=== PATIENT | female | born 1930 | race Caucasian/White ===

== ENCOUNTER 2018-07-24 20:17 | Inpatient (IN) ==
--- NOTE | 2018-07-24 21:07 | ED ---
HPI General Chief complaint: Nausea/Vomiting/Diarrhea Stated complaint: poss GI Bleed Time Seen by Provider: 07/24/18 20:48 Source: patient Mode of arrival: ambulatory Limitations: no limitations History of Present Illness HPI Narrative: Patient presents with history of nausea vomiting and diarrhea since Saturday. Patient started with nausea and vomiting and hematemesis with black vomitus. Over the next 2 days patient had 2 to 3 black stools. Patient states she stayed in the bathtub to clean up the black stools and vomitus and was unable to get out. Neighbors had patient checked on and she was found in the bathtub. Patient said she is tried to drink fluid but unable to maintain. The diarrhea and nausea and vomiting have resolved at the present time. Related Data Home Medications Medication Instructions Recorded Confirmed Unable to Obtain Home Meds 07/24/18 07/24/18 Allergies Allergy/AdvReac Type Severity Reaction Status Date / Time No Known Allergies Allergy Verified 07/24/18 21:20 Review of Systems ROS: all other systems reviewed are negative [facility] Social History Social History Smoking Status: Former smoker Tobacco Type: Cigarettes How Often Do You Have a Drink Containing Alcohol: Never Recent Travel in [facility] within the Last 8 Weeks: No Recent Out of Country Travel within the Last 8 Weeks: No Immunization History Tetanus Immunization: Unsure Exam Narrative Exam Narrative: GENERAL: Alert and oriented SKIN: Focused skin assessment warm/dry. Patient has extensive candidal infection under both breasts anteriorly. Patient also has decubiti to buttocks. She has 4 areas that have 2-3 grade 3 cm diameter. And additionally patient has grade 1 to a large area of the lower buttocks area. HEAD: Atraumatic. Normocephalic. EYES: Pupils equal and round. No scleral icterus. No injection or drainage. ENT: No nasal bleeding or discharge. Mucous membranes pink and dry with chapped lips. NECK: Trachea midline. No JVD. CARDIOVASCULAR: Regular rate and rhythm. No murmur appreciated. RESPIRATORY: No accessory muscle use. Clear to auscultation. Breath sounds equal bilaterally. Rectal: Patient has brown stoolHemoccult negative GASTROINTESTINAL: Abdomen soft, non-tender, nondistended. Hepatic and splenic margins not palpable. MUSCULOSKELETAL: No obvious deformities. No clubbing. No cyanosis. No edema. NEUROLOGICAL: Awake and alert. No obvious cranial nerve deficits. Motor grossly within normal limits. Normal speech. PSYCHIATRIC: Appropriate mood and affect; insight and judgment normal. Course Reevaluation(s) Reevaluation #1: Patient came in with dehydration gastroenteritis with questionable of GI bleed. Patient was found in bathtub where she had laid for 2 days. Patient has no cardiac symptomatology. However EKG showed ST segment elevation in precordial leads. Troponin showed significant elevation of indication of [place]. Patient being transferred to [facility] for cardiac cath and started on heparin. Time: 03:58 Initial Documented Vital Signs Pulse Rate 74 07/24/18 23:11 Pulse Oximetry 94 L 07/24/18 23:11 Last Documented Vital Signs Pulse Rate 80 07/25/18 03:05 Respiratory Rate 16 07/25/18 01:52 Blood Pressure 163/81 H 07/25/18 03:05 Pulse Oximetry 95 07/25/18 03:05 Medical Decision Making MDM Narrative Medical decision making narrative: Patient comes in with episode of gastroenteritis and questionable GI bleed. There was no evidence of GI bleed however patient was dehydrated unable to get out of bathtub for 2 days. Patient comes in with decubiti and on workup was found to have abnormal EKG with ST segment elevation V1 V2. Troponin value afterwards showed significant elevation and patient is started on heparin and transferred to [facility] for further evaluation. Patient has no symptomatology of cardiac symptomatology so the cardiac event should have presumed to occurred in the last 3 days Medical Screen Exam Complete: Yes Emergency Medical Condition: Yes Lab Data Lab results reviewed: Yes I reviewed the patient's lab results. Result diagrams: 07/24/18 22:05 07/24/18 22:32 Lab Results 07/24/18 07/24/18 07/24/18 Range/Units 22:05 22:32 22:32 CBC w Diff Slide review pending WBC 18.2 H (4.0-11.0) th/mm3 RBC 4.94 (4.00-5.30) mil/mm3 Hgb 15.3 (11.6-15.3) gm/dL Hct 46.2 H (35.0-46.0) % MCV 93.6 (80.0-100.0) fL MCH 31.0 (27.0-34.0) pg MCHC 33.1 (32.0-36.0) % RDW 14.5 (11.6-17.2) % Plt Count 121 L (150-450) th/mm3 MPV 10.0 (7.0-11.0) fL Neut % (Auto) 83.2 H (16.0-70.0) % Lymph % (Auto) 6.2 L (9.0-44.0) % [place] % (Auto) 9.0 H (0.0-8.0) % Eos % (Auto) 0.0 (0.0-4.0) % Baso % (Auto) 1.6 (0.0-2.0) % Neut # (Auto) 15.2 H (1.8-7.7) th/mm3 Lymph # (Auto) 1.1 (1.0-4.8) th/mm3 [place] # (Auto) 1.6 H (0.0-0.9) th/mm3 Eos # (Auto) 0.0 (0.0-0.4) th/mm3 Baso # (Auto) 0.3 H (0.0-0.2) th/mm3 WBC Differential . Diff Scan Auto diff confirmed Differential Comment . Platelet Estimate Low L (Normal) Platelet Morphology Enlarged H (Normal) Sodium 152 H (136-145) meq/L Potassium 4.6 (3.5-5.1) meq/L Chloride 117 H (98-107) meq/L Carbon Dioxide 25.9 (21.0-32.0) meq/L Anion Gap 9 (5-15) meq/L BUN 59 H (7-18) mg/dL Creatinine 1.30 H (0.50-1.00) mg/dL Estimated GFR 39 L (>89) mL/min Random Glucose 117 H (74-106) mg/dL Calcium 8.0 L (8.5-10.1) mg/dL Total Bilirubin 1.3 H (0.2-1.0) mg/dL AST 229 H (15-37) U/L ALT 70 H (10-53) U/L Alkaline Phosphatase 51 (45-117) U/L Total Creatine Kinase (26-192) U/L CK-MB (CK-2) (0.5-3.6) ng/mL CK-MB (CK-2) % (0.0-4.0) % Troponin I 2.91 H* (0.02-0.05) ng/mL B-Natriuretic Peptide (0-100) pg/mL Total Protein 6.3 L (6.4-8.2) g/dL Albumin 2.8 L (3.4-5.0) g/dL Urine Color (Yellw/Straw) Urine Clarity (Clear) Urine pH (5.0-8.5) Ur Specific [place] (1.002-1.035) Urine Protein (Neg-Trace) mg/dL Urine Glucose (UA) (Negative) mg/dL Urine Ketones (Negative) mg/dL Urine Occult Blood (Negative) Urine Nitrate (Negative) Urine Bilirubin (Negative) Urine Urobilinogen (Less than 2) mg/dL Ur Leukocyte Esterase (Negative) Urine RBC (0-3) /hpf Urine WBC (0-5) /hpf Ur Squamous Epith Cells (0-5) /hpf Urine Bacteria (None) /hpf Micro UA Comment Ur Microscopic Review Urine Culture Comments 07/24/18 07/24/18 07/25/18 Range/Units 23:31 23:33 01:36 CBC w Diff WBC (4.0-11.0) th/mm3 RBC (4.00-5.30) mil/mm3 Hgb (11.6-15.3) gm/dL Hct (35.0-46.0) % MCV (80.0-100.0) fL MCH (27.0-34.0) pg MCHC (32.0-36.0) % RDW (11.6-17.2) % Plt Count (150-450) th/mm3 MPV (7.0-11.0) fL Neut % (Auto) (16.0-70.0) % Lymph % (Auto) (9.0-44.0) % [place] % (Auto) (0.0-8.0) % Eos % (Auto) (0.0-4.0) % Baso % (Auto) (0.0-2.0) % Neut # (Auto) (1.8-7.7) th/mm3 Lymph # (Auto) (1.0-4.8) th/mm3 [place] # (Auto) (0.0-0.9) th/mm3 Eos # (Auto) (0.0-0.4) th/mm3 Baso # (Auto) (0.0-0.2) th/mm3 WBC Differential Diff Scan Differential Comment Platelet Estimate (Normal) Platelet Morphology (Normal) Sodium (136-145) meq/L Potassium (3.5-5.1) meq/L Chloride (98-107) meq/L Carbon Dioxide (21.0-32.0) meq/L Anion Gap (5-15) meq/L BUN (7-18) mg/dL Creatinine (0.50-1.00) mg/dL Estimated GFR (>89) mL/min Random Glucose (74-106) mg/dL Calcium (8.5-10.1) mg/dL Total Bilirubin (0.2-1.0) mg/dL AST (15-37) U/L ALT (10-53) U/L Alkaline Phosphatase (45-117) U/L Total Creatine Kinase 1843 H (26-192) U/L CK-MB (CK-2) 23.8 H (0.5-3.6) ng/mL CK-MB (CK-2) % 1.3 (0.0-4.0) % Troponin I (0.02-0.05) ng/mL B-Natriuretic Peptide 117 H (0-100) pg/mL Total Protein (6.4-8.2) g/dL Albumin (3.4-5.0) g/dL Urine Color Yellow (Yellw/Straw) Urine Clarity Clear (Clear) Urine pH 5.5 (5.0-8.5) Ur Specific [place] Greater/equal 1.030 (1.002-1.035) Urine Protein 30 H (Neg-Trace) mg/dL Urine Glucose (UA) Negative (Negative) mg/dL Urine Ketones Trace H (Negative) mg/dL Urine Occult Blood Large H (Negative) Urine Nitrate Negative (Negative) Urine Bilirubin Negative (Negative) Urine Urobilinogen 0.2 (Less than 2) mg/dL Ur Leukocyte Esterase Negative (Negative) Urine RBC 0-3 (0-3) /hpf Urine WBC 6-8 H (0-5) /hpf Ur Squamous Epith Cells 0-5 (0-5) /hpf Urine Bacteria Many H (None) /hpf Micro UA Comment Culture indicated Ur Microscopic Review Microscopic reviewed Urine Culture Comments Culture indicated Imaging Data Radiologist's impression: Chest X-Ray 07/24/18 21:39 CONCLUSION: Minimal prominence of interstitium. This could represent some pulmonary venous hypertension or underlying chronic interstitial change. Chest X-Ray 07/24/18 23:33 CONCLUSION: Minimal basilar atelectasis or scarring. Tortuous aorta. Discharge Plan Discharge Disposition Patient Disposition: 02 Transfer To [facility] [place] [place] Physicians Team ED Provider: Ovidio Leyva Primary Care Provider: UNKNOWN, Rxs /Orders / Referrals /Forms Prescriptions: No Action Unable to Obtain Home Meds RF: 0 Discharge Interventions Interventions: Vital Signs Last Done: 07/25/18 03:05 Status ED Status: With Doctor
[2018-07-24] MEDS ORDERED: Sod Chloride 0.9% Inj 1,000 ML IV.SIG ONE (21:39)
[2018-07-24 22:22] LABS: Baso # (Auto) 0.3 th/mm3 (0.0-0.2); Baso % (Auto) 1.6 % (0.0-2.0); Hematocrit 46.2 % (35.0-46.0); Hemoglobin 15.3 gm/dL (11.6-15.3); Lymph # (Auto) 1.1 th/mm3 (1.0-4.8); Lymph % (Auto) 6.2 % (9.0-44.0); Mean Corpuscular HGB Conc 33.1 % (32.0-36.0); Mean Corpuscular Volume 93.6 fL (80.0-100.0); Mono # (Auto) 1.6 th/mm3 (0.0-0.9); Neut # (Auto) 15.2 th/mm3 (1.8-7.7); Neut % (Auto) 83.2 % (16.0-70.0); Platelet Count 121 th/mm3 (150-450); Red Blood Count 4.94 mil/mm3 (4.00-5.30); Red Cell Distribution Width 14.5 % (11.6-17.2); White Blood Count 18.2 th/mm3 (4.0-11.0)
--- NOTE | 2018-07-24 22:39 | XR ---
EXAM DATE: 07/24/2018 9:39 PM EDT AGE/SEX: 87 years / Female INDICATIONS: Shortness of breath. CLINICAL DATA: This is the patient's initial encounter. Patient reports that signs and symptoms have been present for 3 days and indicates a pain score of 0/10. MEDICAL/SURGICAL HISTORY: None. None. COMPARISON: No prior exams available for comparison. FINDINGS: The patient is rotated towards the right. The heart size appears within normal limits. There is some mild prominence of interstitium. An alveolar consolidation is not seen. A significant effusion is not seen. CONCLUSION: Minimal prominence of interstitium. This could represent some pulmonary venous hypertension or underl maddison chronic interstitial change. Electronically signed by: Richard Theodore MD 07/24/2018 10:37 PM EDT
[2018-07-24 22:48] LABS: Chloride 117 meq/L (98-107); Potassium 4.6 meq/L (3.5-5.1); Sodium 152 meq/L (136-145)
[2018-07-24 22:51] LABS: Albumin 2.8 g/dL (3.4-5.0); Anion Gap 9 meq/L (5-15); Blood Urea Nitrogen 59 mg/dL (7-18); Carbon Dioxide 25.9 meq/L (21.0-32.0); Glucose,Random 117 mg/dL (74-106)
[2018-07-24 22:54] LABS: Alanine Aminotransferase 70 U/L (10-53); Aspartate Aminotransferase 229 U/L (15-37); Glomerular Filtration Rate 39 mL/min (>89)
[2018-07-24 22:56] LABS: Total Protein 6.3 g/dL (6.4-8.2)
[2018-07-24 22:57] LABS: Alkaline Phosphatase 51 U/L (45-117)
[2018-07-24 23:58] LABS: CKMB Percent 1.3 % (0.0-4.0); Creatine Kinase MB 23.8 ng/mL (0.5-3.6)
--- NOTE | 2018-07-25 00:07 | XR ---
EXAM DATE: 07/24/2018 11:33 PM EDT AGE/SEX: 87 years / Female INDICATIONS: Shortness of breath. CLINICAL DATA: This is the patient's subsequent encounter. Patient reports that signs and symptoms h ave been present for 1 day and indicates a pain score of 0/10. MEDICAL/SURGICAL HISTORY: None. None. COMPARISON: HPO, CHEST 1V SINGLE AP, 07/24/2018. . FINDINGS: A single AP view of the chest demonstrates the lungs to be symmetrically aerated without evidence of mass, infiltrate or effusion. Minimal basilar atelectasis or scarring. The cardiomediastinal contour s are unremarkable. Osseous structures are intact. CONCLUSION: Minimal basilar atelectasis or scarring. Tortuous aorta. Electronically signed by: Jose Wild MD 07/25/2018 12:06 AM EDT
[2018-07-25 01:58] LABS: Bilirubin,Urine Negative (Negative); Clarity,Urine Clear (Clear); Color,Urine Yellow (Yellw/Straw); Glucose,Urine (UA) Negative (Negative); Leukocyte Esterase,Urine Negative (Negative); Nitrite,Urine Negative (Negative); PH,Urine 5.5 (5.0-8.5); Specific Gravity,Urine Greater/Equal 1.030 (1.002-1.035); Urobilinogen,Urine 0.2 mg/dL (Less than 2)
[2018-07-25 02:03] LABS: Bacteria,Urine Many /hpf; RBC,Urine 0-3 /hpf (0-3); Squamous Epithelial Cell,Urine 0-5 /hpf (0-5)
[2018-07-25] MEDS ORDERED: Sod Chloride 0.9% Inj 1,000 ML IV.SIG SCH (03:30)
[2018-07-25] MEDS ORDERED: Heparin 10,000 UNITS/10 ML Vial (for IV use) IV.PUSH STA (03:50)
[2018-07-25] MEDS ORDERED: Acetaminophen 325 MG Tablet PO PRN (03:52)
[2018-07-25] MEDS ORDERED: Bisacodyl 10 MG Supp RECTAL PRN (03:52)
[2018-07-25] MEDS ORDERED: Sod Chloride 0.9% Inj 1,000 ML IV.CONT SCH (04:00)
[2018-07-25 04:27] LABS: Troponin I 2.16 ng/mL (0.02-0.05)
[2018-07-25 04:40] LABS: CKMB Percent 1.4 % (0.0-4.0); Creatine Kinase MB 18.7 ng/mL (0.5-3.6)
[2018-07-25 06:55] LABS: INR 1.1 Ratio; Prothrombin Time 11.6 sec (9.8-11.6)
[2018-07-25 06:58] LABS: Hematocrit 38.2 % (35.0-46.0); Mean Corpuscular HGB Conc 34.4 % (32.0-36.0); Mean Corpuscular Hemoglobin 32.3 pg (27.0-34.0); Mean Corpuscular Volume 93.7 fL (80.0-100.0); Mean Platelet Volume 9.8 fL (7.0-11.0); Platelet Count 103 th/mm3 (150-450); Red Blood Count 4.07 mil/mm3 (4.00-5.30); Red Cell Distribution Width 13.8 % (11.6-17.2); White Blood Count 14.1 th/mm3 (4.0-11.0)
[2018-07-25 07:01] LABS: Hemoglobin 13.1 gm/dL (11.6-15.3)
[2018-07-25 07:07] LABS: Lactate Dehydrogenase 671 U/L (84-246)
[2018-07-25] MEDS: Heparin Drip 25,000 UNIT/250 ML BAG IV.CONT PRN (07:20)
[2018-07-25 10:34] LABS: Baso % (Auto) 0.1 % (0.0-2.0); Hematocrit 43.4 % (35.0-46.0); Hemoglobin 14.1 gm/dL (11.6-15.3); Lymph # (Auto) 1.6 th/mm3 (1.0-4.8); Lymph % (Auto) 11.8 % (9.0-44.0); Mean Corpuscular HGB Conc 32.5 % (32.0-36.0); Mean Corpuscular Hemoglobin 31.6 pg (27.0-34.0); Mean Corpuscular Volume 97.1 fL (80.0-100.0); Mean Platelet Volume 11.2 fL (7.0-11.0); Mono # (Auto) 1.3 th/mm3 (0.0-0.9); Mono % (Auto) 9.7 % (0.0-8.0); Neut # (Auto) 10.7 th/mm3 (1.8-7.7); Neut % (Auto) 78.4 % (16.0-70.0); Platelet Count 107 th/mm3 (150-450); Red Blood Count 4.47 mil/mm3 (4.00-5.30); Red Cell Distribution Width 14.2 % (11.6-17.2); White Blood Count 13.7 th/mm3 (4.0-11.0)
[2018-07-25] MEDS: Senna/Docusate Sodium 8.6/50 MG Tablet PO SCH ×2 (10:38→21:04)
--- NOTE | 2018-07-25 10:50 | P.HPIM ---
History of Present Illness Service: [facility] Primary Care Physician: UNKNOWN History of Present Illness: 87 Y/O female who presented to the emergency room for nausea and vomiting. She reported black emesis to the ED physician but reports to me that she vomited a sandwich made with roast beef. There is also reports of 2-3 black stools. Over the past two days prior to presentation, she has been unable to keep anything down, even liquids. She went to the bath tub to clean herself but could not get out. Neighbors found her in the tub. The patient is still quiet somnolent and is not providing much history. Workup in the emergency room revealed an elevated troponin and rhabdomyolysis. She currently denies any cardiovascular complaints. Nausea and vomiting resolved. - Diagnosis (1) Elevated troponin (2) Gastroenteritis (3) Rhabdomyolysis Inpatient Certification: I certify that the inpatient services were ordered in accordance with Medicare regulations governing the order. This includes certification that hospital inpatient services are reasonable and necessary and in the case of services not specified as inpatient-only under 42 CFR 419.22(n), that they are appropriately provided as inpatient services in accordance to with the 2-midnight benchmark under 43 CFR 412.3(e) Estimated Total Length of Stay (Days): 2 Plans for Post Hospital Care: Not yet determined Review of Systems unobtainable due to mental status PMFSH - History History Provided By: Patient - Medical / Surgical Hx Neg / Unobtainable Medical Problems Denied: Unable to Obtain - Tobacco History Smoking Status: Former smoker Tobacco Type: Cigarettes - Alcohol History How Often Do You Have a Drink Containing Alcohol: Never - Travel History Recent Travel in the [place] Within the Last 8 Weeks: No Recent Travel Out of the Country Within the Last 8 Weeks: No - Immunization History Tetanus Immunization: Unsure Medications and Allergies Active Medications: Active Medications Acetaminophen (Tylenol) 650 mg PO Q4H PRN PRN Reason: Temp > 100.4 Al Hydroxide/Mg Hydroxide (Milk Of Magnesia Liq) 30 ml PO Q12H PRN PRN Reason: Mild Constipation Bisacodyl (Dulcolax Supp) 10 mg RECTAL DAILY PRN PRN Reason: SEVERE CONSITIPATION Sodium Chloride (Ns Inj) 1,000 mls @ 0 mls/hr IV.SIG BOLUS NIRANJAN Last Infusion: 07/25/18 05:35 Dose: Infused Sodium Chloride (Ns Inj) 1,000 mls @ 100 mls/hr IV.CONT .Q10H NIRANJAN Last Admin: 07/25/18 07:22 Dose: 100 mls/hr Heparin Sodium/Dextrose (Heparin/D5w 25,000 U/250 Ml) 25,000 unit in 250 mls @ 0 mls/hr IV.CONT TITRATE PRN; Protocol PRN Reason: Per Protocol Last Admin: 07/25/18 07:20 Dose: 1,000 units/hr, 10 mls/hr Lactulose (Lactulose Liq) 30 ml PO DAILY PRN PRN Reason: SEVERE CONSITIPATION Ondansetron HCl (Zofran Inj) 4 mg IV.PUSH Q6H PRN PRN Reason: NAUSEA OR VOMITING Senna/Docusate Sodium (Gail-Colace) 1 tab PO BID [facility] Last Admin: 07/25/18 10:38 Dose: Not Given Sennosides (Senokot) 17.2 mg PO Q12H PRN PRN Reason: Moderate Constipation Sodium Chloride (Ns Flush) 2 ml IV.FLUSH PRN PRN PRN Reason: FLUSH AFTER USING IV ACCESS Allergies Allergy/AdvReac Type Severity Reaction Status Date / Time No Known Allergies Allergy Verified 07/24/18 21:20 Home Medications Medication Instructions Recorded Confirmed Type Unable to Obtain Home Meds 07/24/18 07/24/18 History Exam Vital signs: Vital Signs 07/24/18 23:11 07/25/18 01:09 07/25/18 01:52 Temperature Pulse Rate 74 85 82 Respiratory Rate 16 Blood Pressure 158/60 H 151/63 H Pulse Oximetry 94 L 95 95 07/25/18 03:05 07/25/18 05:40 07/25/18 06:06 Temperature 97.6 F Pulse Rate 80 82 71 Respiratory Rate 16 Blood Pressure 163/81 H 159/74 H 151/74 H Pulse Oximetry 95 95 98 07/25/18 07:00 Temperature Pulse Rate 75 Respiratory Rate 18 Blood Pressure 139/66 Pulse Oximetry 96 Intake & Output 07/24/18 07/25/18 07/25/18 18:59 06:59 18:59 Intake Total 1999 Output Total 350 / 350 Balance 1650 / 1650 Weight 90.718 kg Intake: IV 1999 NS Inj 1,000 ML @ Wide Open IV. 1999 SIG BOLUS [facility] Rx#:[id number] Output: Urine Amount (Catheter) 350 / 350 Female External 350 / 350 Narrative: GENERAL: Elderly female, Somnolent. SKIN: Warm and dry. HEAD: Atraumatic. Normocephalic. EYES: Pupils equal and round. No scleral icterus. No injection or drainage. ENT: No nasal bleeding or discharge. Mucous membranes pink and moist. NECK: Trachea midline. No JVD. CARDIOVASCULAR: Normal rate and regular rhythm. RESPIRATORY: No accessory muscle use. Clear to auscultation. Breath sounds equal bilaterally. GASTROINTESTINAL: Abdomen soft, non-tender, nondistended. Hepatic and splenic margins not palpable. MUSCULOSKELETAL: Extremities without clubbing, cyanosis, or edema. No obvious deformities. NEUROLOGICAL: Somnolent but able to move all extremities spontaneously and briefly wake up to answer some questions. Results - Labs CBC & Chem 7: 07/25/18 09:44 07/25/18 09:44 Labs: Short CBC 07/24/18 07/25/18 07/25/18 Range/Units 22:05 06:40 09:44 WBC 18.2 H 14.1 H 13.7 H (4.0-11.0) th/mm3 Hgb 15.3 13.1 D 14.1 (11.6-15.3) gm/dL Hct 46.2 H 38.2 43.4 (35.0-46.0) % Plt Count 121 L 103 L 107 L (150-450) th/mm3 BMP 07/24/18 22:32 Sodium 152 H Potassium 4.6 Chloride 117 H Carbon Dioxide 25.9 BUN 59 H Creatinine 1.30 H Calcium 8.0 L Cardiac Enzymes 07/24/18 07/24/18 07/25/18 Range/Units 22:32 23:31 03:30 Total Creatine Kinase 1843 H 1298 H (26-192) U/L CK-MB (CK-2) 23.8 H 18.7 H (0.5-3.6) ng/mL Troponin I 2.91 H* 2.16 H* D (0.02-0.05) ng/mL Liver Function 07/24/18 Range/Units 22:32 Total Bilirubin 1.3 H (0.2-1.0) mg/dL AST 229 H (15-37) U/L ALT 70 H (10-53) U/L Alkaline Phosphatase 51 (45-117) U/L Albumin 2.8 L (3.4-5.0) g/dL Urine 07/25/18 Range/Units 01:36 Urine Color Yellow (Yellw/Straw) Urine Clarity Clear (Clear) Urine pH 5.5 (5.0-8.5) Ur Specific [place] Greater/equal 1.030 (1.002-1.035) Urine Protein 30 H (Neg-Trace) mg/dL Urine Glucose (UA) Negative (Negative) mg/dL - Imaging Impressions Chest X-Ray 07/24/18 21:39 CONCLUSION: Minimal prominence of interstitium. This could represent some pulmonary venous hypertension or underlying chronic interstitial change. Chest X-Ray 07/24/18 23:33 CONCLUSION: Minimal basilar atelectasis or scarring. Tortuous aorta. Caprini VTE Risk Assessment Caprini VTE Risk Assessment: Moderate/High Risk (score >= 2) Caprini Risk Assessment Model: Point Value = 1 Point Value = 2 Point Value = 3 Point Value = 5 Age 41-60 Minor surgery BMI > 25 kg/m2 Swollen legs Varicose veins or History of unexplained or recurrent spontaneous Oral contraceptives or hormone replacement Sepsis (< 1 month) Serious lung disease, including pneumonia (< 1 month) Abnormal pulmonary function Acute myocardial infarction Congestive heart failure (< 1 month) History of inflammatory bowel disease Medical patient at bed rest Age 61-74 Arthroscopic surgery Major open surgery (> 45 min) Laparoscopic surgery (> 45 min) Malignancy Confined to bed (> 72 hours) Immobilizing plaster cast Central venous access Age >= 75 History of VTE Family history of VTE Factor V Leiden Prothrombin [id number] Lupus anticoagulant Anticardiolipin antibodies Elevated serum homocysteine Heparin-induced thrombocytopenia Other congenital or acquired thrombophilia Stroke (< 1 month) Elective arthroplasty Hip, pelvis, or leg fracture Acute spinal cord injury (< 1 month) Prophylaxis Regimen: Total Risk Factor Score Risk Level Prophylaxis Regimen 0-1 Low Early ambulation 2 Moderate Order ONE of the following: *Sequential Compression Device (SCD) *Heparin 5000 units SQ BID 3-4 Higher Order ONE of the following medications: *Heparin 5000 units SQ TID *Enoxaparin/Lovenox 40 mg SQ daily (WT < 150 kg, CrCl > 30 mL/min) *Enoxaparin/Lovenox 30 mg SQ daily (WT < 150 kg, CrCl > 10-29 mL/min) *Enoxaparin/Lovenox 30 mg SQ BID (WT < 150 kg, CrCl > 30 mL/min) AND/OR *Sequential Compression Device (SCD) 5 or more Highest Order ONE of the following medications: *Heparin 5000 units SQ TID (Preferred with Epidurals) *Enoxaparin/Lovenox 40 mg SQ daily (WT < 150 kg, CrCl > 30 mL/min) *Enoxaparin/Lovenox 30 mg SQ daily (WT < 150 kg, CrCl > 10-29 mL/min) *Enoxaparin/Lovenox 30 mg SQ BID (WT < 150 kg, CrCl > 30 mL/min) AND *Sequential Compression Device (SCD) Assessment and Plan - Assessment (1) Elevated troponin Code(s): R74.8 - Abnormal levels of other serum enzymes Status: Acute (2) Gastroenteritis Code(s): K52.9 - Noninfective gastroenteritis and colitis, unspecified Status : Acute (3) Rhabdomyolysis Code(s): M62.82 - Rhabdomyolysis Status: Acute - Plan 87 Y/O female with: Rhabdomyolysis secondary to dehydration and prolonged immobilization: - Continue with IV hydration - Follow up labs Elevated troponin: - No cardiovascular complaints. DW Cardiology. Likely due to severe dehydration and rhabdo. Recommends we continue to watch her and keep heparin for 24-48 hrs. - Troponin downtrending. Gastroenteritis with reports of dark emesis and dark stool. - Agree with Cardiology., will ask GI to evaluate in AM - H&H is normal so far but may be hemoconcentrated. Follow H&H KYLEE: Likely secondary to dehydration - Continue IV hydration - Follow up labs in AM Elevated LFT's - Likely secondary to shocked liver and severe dehydration. No history of liver disease - Follow up LFT's in AM.
[2018-07-25 11:15] LABS: Alanine Aminotransferase 68 U/L (10-53); Albumin 2.8 g/dL (3.4-5.0); Anion Gap 12 meq/L (5-15); Aspartate Aminotransferase 201 U/L (15-37); Blood Urea Nitrogen 50 mg/dL (7-18); Calcium 8.3 mg/dL (8.5-10.1); Carbon Dioxide 26.2 meq/L (21.0-32.0); Chloride 116 meq/L (98-107); Glomerular Filtration Rate 56 mL/min (>89); Glucose,Random 87 mg/dL (74-106); Potassium 3.6 meq/L (3.5-5.1); Sodium 154 meq/L (136-145)
[2018-07-25 11:29] LABS: Alkaline Phosphatase 55 U/L (45-117); Creatine Kinase 1240 U/L (26-192); Total Protein 6.1 g/dL (6.4-8.2)
[2018-07-25 11:43] LABS: Troponin I 1.82 ng/mL (0.02-0.05)
[2018-07-25 11:55] LABS: CKMB Percent 1.3 % (0.0-4.0); Creatine Kinase MB 16.4 ng/mL (0.5-3.6)
--- NOTE | 2018-07-25 12:44 | MB ---
cc: Milo Flowers DO DATE: 07/25/2018 REASON FOR CONSULTATION: Elevated troponin. HISTORY OF PRESENT ILLNESS: Suzette Ribera is an 87-year-old female who apparently presented to [facility] due to nausea, vomiting and diarrhea. The patient has lost her sense of smell supposedly and ate rancid roast beef, and because of this she started having nausea, vomiting and diarrhea. Apparently, her emesis and diarrhea were both melanotic. Because of this, she placed herself in the bathtub trying to clean up. She was unable to get out of the bathtub and stayed in the bathtub for a few days. Neighbors had the patient checked on and she was found in the bathtub. She was brought to [facility] and from there transferred to [facility]. In seeing her, she is currently hemodynamically stable. She is relatively lethargic and is able to answer simple questions, but otherwise falls asleep during questioning. Difficult to obtain any history at this time because of this. She states that she has no chest pain or shortness of breath throughout the event or currently. PAST MEDICAL HISTORY: Unable to obtain. PAST SURGICAL HISTORY: Unable to obtain. ALLERGIES: NO KNOWN DRUG ALLERGIES. MEDICATIONS: Unable to obtain. FAMILY HISTORY: Unable to obtain. SOCIAL HISTORY: Unable to obtain. REVIEW OF SYSTEMS: Difficult to obtain, but apparently the patient has no chest pain, shortness of breath or palpitations. She was positive for nausea, vomiting and diarrhea. PHYSICAL EXAMINATION: VITAL SIGNS: Temperature 97.6, heart rate 75, blood pressure 139/66, respirations 18, pulse oximetry 96% on 2 liters. GENERAL: The patient is in no acute distress, mostly lethargic, but arousable to questioning. HEENT: Pupils are equal, round and reactive. Mucous membranes are dry. NECK: Supple. No JVD at 45 degrees. No carotid bruits heard bilaterally. Carotid upstroke is brisk in nature. HEART: Regular rate and rhythm. Positive first and second heart sounds with a 1/6 crescendo decrescendo murmur to the right sternal border. LUNGS: Clear to auscultation bilaterally. No wheezes, rales or rhonchi. ABDOMEN: Soft, nontender, nondistended. No organomegaly noted. EXTREMITIES: Show trace edema bilaterally. NEUROLOGIC: Appears to move all 4 extremities. SKIN: Warm, dry and intact. OSTEOPATHIC: Mild kyphoscoliosis. No lordosis. LABORATORY WORK: Hemoglobin 13.1, hematocrit 38.2, platelets 103. Potassium 3.6, BUN 50, creatinine 0.95. Troponin 2.91 decreasing to 1.82. Electrocardiogram (07/24/2018 at 23:48): Sinus rhythm, nonspecific ST-T wave changes. IMPRESSION: 1. Elevated troponin, possible type 2. 2. Dehydration due to diarrhea and emesis. 3. Hematemesis. 4. Melenic stools. 5. Acute kidney injury. 6. Hypernatremia due to dehydration. 7. Rhabdomyolysis. RECOMMENDATIONS: 1. Ms. Ribera appears to have ate rancid roast beef which led to her having nausea and vomiting as well as diarrhea. 2. Apparently, per the patient by history, she had hematemesis as well as melanotic stools. I would recommend a GI workup from that standpoint. 3. She does have an elevated troponin and this is most likely due to dehydration, rhabdomyolysis more than anything. 4. Ultimately, due to her age, overall frailty, and current comorbidities, would hold off on ischemic evaluation and attempt to treat her medically as best as possible. When she is more with it, I will discuss this further with her and if she absolutely wants to undergo a work up then will consider stress testing. 5. She will be treated with fluids due to her dehydration. 6. For now, we will treat her with heparin, but this will most likely be stopped in 24-48 hours. 7. We will check a 2-D echocardiogram to look at her overall left ventricular function, cardiac structure, and possible valvulopathies. 8. Further recommendations will be made based on the hospital course. Thank you for allowing me to see Suzette Ribera. If there are any questions, please do not hesitate to call. DO AVINASH Miguel/joshua , 12:13 PM , 12:24 PM [facility] CENTERBetito
[2018-07-25] MEDS: Sodium Chloride 0.45 % Inj 1,000 ML IV.CONT SCH (18:55)
--- NOTE | 2018-07-25 19:46 | ECG ---
Date Performed: 07/24/2018 Time Performed: 23:48:34 PTAGE: 87 years EKG: Sinus rhythm PROBABLE SEPTAL MYOCARDIAL INFARCTION ABNORMAL ECG NO PREVIOUS TRACING DOCTOR: Dioni Estrella Interpretating Date/Time 07/25/2018 19:45:56
--- NOTE | 2018-07-25 19:56 | ECG ---
Date Performed: 07/24/2018 Time Performed: 21:47:42 PTAGE: 87 years EKG: Sinus rhythm MODERATE ST DEPRESSION ABNORMAL ECG PREVIOUS TRACING : 11/07/1993 15.42 Since the previous tracing, no significant change noted DOCTOR: Dioni Estrella Interpretating Date/Time 07/25/2018 19:55:57
[2018-07-26] MEDS: Sodium Chloride 0.45 % Inj 1,000 ML IV.CONT SCH ×3 (02:25→20:55)
[2018-07-26] MEDS: Heparin Drip 25,000 UNIT/250 ML BAG IV.CONT PRN (03:59)
[2018-07-26 07:23] LABS: Hematocrit 36.8 % (35.0-46.0); Hemoglobin 12.4 gm/dL (11.6-15.3); Mean Corpuscular HGB Conc 33.6 % (32.0-36.0); Mean Corpuscular Volume 95.3 fL (80.0-100.0); Platelet Count 91 th/mm3 (150-450); Red Blood Count 3.86 mil/mm3 (4.00-5.30); Red Cell Distribution Width 13.7 % (11.6-17.2); White Blood Count 10.4 th/mm3 (4.0-11.0)
[2018-07-26 07:55] LABS: Albumin 2.2 g/dL (3.4-5.0); Calcium 8.1 mg/dL (8.5-10.1); Potassium 3.8 meq/L (3.5-5.1); Total Protein 5.1 g/dL (6.4-8.2)
[2018-07-26 08:35] LABS: CKMB Percent 1.8 % (0.0-4.0); Creatine Kinase MB 8.3 ng/mL (0.5-3.6)
[2018-07-26] MEDS: Senna/Docusate Sodium 8.6/50 MG Tablet PO SCH ×2 (08:50→20:49)
--- NOTE | 2018-07-26 10:12 | P.PNIM ---
Subjective Interval history: Patient is more awake today. She reports that she does not believe in medications and does not follow with doctors. States she is feeling better today but admits she is still very weak. Physical Exam Vital signs: Vital Signs 07/25/18 12:00 07/25/18 16:00 07/25/18 20:00 Temperature 98.0 F 97.5 F L 98.0 F Pulse Rate 66 81 64 Respiratory Rate 22 24 25 H Blood Pressure 173/78 H 151/62 H 136/61 Pulse Oximetry 99 98 100 07/26/18 02:00 07/26/18 03:00 07/26/18 04:00 Temperature 97.3 F L 97.3 F L Pulse Rate 68 66 66 Respiratory Rate 20 20 Blood Pressure 147/67 H 172/72 H Pulse Oximetry 99 99 07/26/18 05:00 07/26/18 06:00 07/26/18 07:55 Temperature Pulse Rate 60 71 Respiratory Rate Blood Pressure Pulse Oximetry 97 07/26/18 08:00 Temperature 98.2 F Pulse Rate 75 Respiratory Rate 18 Blood Pressure 135/84 Pulse Oximetry 98 Intake & Output 07/25/18 07/26/18 07/26/18 18:59 06:59 18:59 Intake Total 2250 / 2250 Output Total 400 / 400 Balance 1850 / 1850 Weight 77.1 kg Intake: IV 2250 / 2250 Heparin/D5W 25,000 U/250 mL 25, 250 / 250 000 unit In 250 ml @ Per Protocol IV.CONT TITRATE PRN Rx #:[id number] NS Inj 1,000 ML @ 100 mls/hr IV 1000 / 1000 .CONT .Q10H NIRANJAN Rx#:[id number] 1/2 Normal Saline Inj 1,000 ML 1000 / 1000 @ 100 mls/hr IV.CONT .Q10H NIRANJAN Rx#:[id number] Output: Urine Amount (Catheter) 400 / 400 Female External 400 / 400 Other: # Voids 2 Date of Last Bowel Movement 07/24/18 07/25/18 Weight On Admission 77 kg Narrative: GENERAL: Elderly and frail female CARDIOVASCULAR: Normal rate and regular rhythm. RESPIRATORY: No accessory muscle use. Clear to auscultation. Breath sounds equal bilaterally. GASTROINTESTINAL: Abdomen soft, non-tender, nondistended. MUSCULOSKELETAL: Extremities without clubbing, cyanosis, or edema. NEUROLOGICAL: Awake and alert. Generalized weakness. - Urinary Catheter Management Female External Cath placed during this visit: no Results - Labs CBC & Chem 7: 07/26/18 06:45 07/26/18 06:45 Laboratory Results - last 24 hr 07/25/18 07/25/18 07/25/18 09:44 09:44 09:44 WBC 13.7 H RBC 4.47 Hgb 14.1 Hct 43.4 MCV 97.1 MCH 31.6 MCHC 32.5 RDW 14.2 Plt Count 107 L MPV 11.2 H Neut % (Auto) 78.4 H Lymph % (Auto) 11.8 [place] % (Auto) 9.7 H Eos % (Auto) 0.0 Baso % (Auto) 0.1 Neut # (Auto) 10.7 H Lymph # (Auto) 1.6 [place] # (Auto) 1.3 H Eos # (Auto) 0.0 Baso # (Auto) 0.0 WBC Differential . Differential Comment Auto diff final APTT 45.4 H D Sodium 154 H Potassium 3.6 D Chloride 116 H Carbon Dioxide 26.2 Anion Gap 12 BUN 50 H Creatinine 0.95 Estimated GFR 56 L Random Glucose 87 Calcium 8.3 L Total Bilirubin 1.1 H Direct Bilirubin Indirect Bilirubin AST 201 H ALT 68 H Alkaline Phosphatase 55 Total Creatine Kinase 1240 H CK-MB (CK-2) 16.4 H CK-MB (CK-2) % 1.3 Troponin I 1.82 H* D Total Protein 6.1 L Albumin 2.8 L Nasal Screen MRSA (PCR) 07/25/18 07/25/18 07/25/18 12:00 13:29 23:58 WBC RBC Hgb Hct MCV MCH MCHC RDW Plt Count MPV Neut % (Auto) Lymph % (Auto) [place] % (Auto) Eos % (Auto) Baso % (Auto) Neut # (Auto) Lymph # (Auto) [place] # (Auto) Eos # (Auto) Baso # (Auto) WBC Differential Differential Comment APTT 32.4 H D 22.5 L D Sodium Potassium Chloride Carbon Dioxide Anion Gap BUN Creatinine Estimated GFR Random Glucose Calcium Total Bilirubin Direct Bilirubin Indirect Bilirubin AST ALT Alkaline Phosphatase Total Creatine Kinase CK-MB (CK-2) CK-MB (CK-2) % Troponin I Total Protein Albumin Nasal Screen MRSA (PCR) Not detected 07/26/18 07/26/18 07/26/18 06:45 06:45 06:45 WBC 10.4 RBC 3.86 L Hgb 12.4 Hct 36.8 MCV 95.3 MCH 32.0 MCHC 33.6 RDW 13.7 Plt Count 91 L MPV 11.0 Neut % (Auto) Lymph % (Auto) [place] % (Auto) Eos % (Auto) Baso % (Auto) Neut # (Auto) Lymph # (Auto) [place] # (Auto) Eos # (Auto) Baso # (Auto) WBC Differential Differential Comment APTT 41.9 H D Sodium 147 H Potassium 3.8 Chloride 114 H Carbon Dioxide 27.0 Anion Gap 6 BUN 38 H Creatinine 0.70 Estimated GFR 79 L Random Glucose 97 Calcium 8.1 L Total Bilirubin 0.5 Direct Bilirubin 0.2 Indirect Bilirubin 0.3 AST 131 H ALT 59 H Alkaline Phosphatase 46 Total Creatine Kinase 474 H CK-MB (CK-2) 8.3 H CK-MB (CK-2) % 1.8 Troponin I Total Protein 5.1 L D Albumin 2.2 L D Nasal Screen MRSA (PCR) Assessment and Plan - Assessment (1) Elevated troponin Code(s): R74.8 - Abnormal levels of other serum enzymes Status: Acute (2) Gastroenteritis Code(s): K52.9 - Noninfective gastroenteritis and colitis, unspecified Status : Acute (3) Rhabdomyolysis Code(s): M62.82 - Rhabdomyolysis Status: Acute - Plan 87 Y/O female who denies any medical history, does not take any medications or follow with doctors admitted with: Rhabdomyolysis secondary to dehydration and prolonged immobilization: - Improving. Continue with IV hydration - Follow up labs Elevated troponin: - No cardiovascular complaints. DW Cardiology. Likely due to severe dehydration and rhabdo. Recommends we continue to watch her and keep heparin for 24-48 hrs. - Troponin downtrending. - Check lipids Gastroenteritis with reports of dark emesis and dark stool. - Agree with Cardiology. GI consulted - H&H is normal - Protonix KYLEE: Likely secondary to dehydration - Resolving with IV hydration - Follow up labs in AM Elevated LFT's - Likely secondary to shocked liver and severe dehydration. No history of liver disease - Improving Follow up LFT's in AM. Physical deconditioning: - PT to eval. Patient lives at home by herself. Discharge Planning: Will likely need SNF versus home with home health.
--- NOTE | 2018-07-26 11:34 | P.CONGI ---
History of Present Illness Consult date: 07/26/18 Consult reason: gi bleed Chief complaint: NSTEMI/Rhabdomyolysis History of Present Illness: This is 87 year-old female who presents here with nausea and vomiting. Symptoms started following eating sandwich made with roast beef that possibly was rancid. Shortly after, pt noticed coffee ground emesis and black stools. She went to the bath tub to clean herself but could not get out. Was there from Saturday until Saturday when she was found by neighbor. Workup revealed an elevated troponin and rhabdomyolysis. Patient denies previous hx of this, not on blood thinner. Denies abd pain or hematochezia. Symptoms have resolved. There is a drop in hgb from 15 - 12. <Yudy Wheatley - Last Filed: 07/26/18 11:22> Review of Systems All other systems reviewed negative except as stated in HPI <Yudy Wheatley - Last Filed: 07/26/18 11:22> PMFSH - History History Provided By: Patient - Medical / Surgical Hx Neg / Unobtainable Medical Problems Denied: Unable to Obtain - Tobacco History Second Hand Smoke Exposure: No Smoking Status: Former smoker Tobacco Type: Cigarettes - Alcohol History How Often Do You Have a Drink Containing Alcohol: Never - Substance Use History Substance History: No History of Abuse - Travel History Recent Travel in the [place] Within the Last 8 Weeks: No Recent Travel Out of the Country Within the Last 8 Weeks: No - Immunization History Tetanus Immunization: Unsure Hx Influenza Vaccine This Season: No <Yudy Wheatley - Last Filed: 07/26/18 11:22> Medications and Allergies Active Medications: Active Medications Acetaminophen (Tylenol) 650 mg PO Q4H PRN PRN Reason: Temp > 100.4 Al Hydroxide/Mg Hydroxide (Milk Of Magnesia Liq) 30 ml PO Q12H PRN PRN Reason: Mild Constipation Bisacodyl (Dulcolax Supp) 10 mg RECTAL DAILY PRN PRN Reason: SEVERE CONSITIPATION Clonidine HCl (Catapres) 0.1 mg PO Q6H PRN PRN Reason: SEE LABEL COMMENTS Heparin Sodium/Dextrose (Heparin/D5w 25,000 U/250 Ml) 25,000 unit in 250 mls @ 0 mls/hr IV.CONT TITRATE PRN; Protocol PRN Reason: Per Protocol Last Admin: 07/26/18 03:59 Dose: 1,300 units/hr, 13 mls/hr Sodium Chloride (1/2 Normal Saline Inj) 1,000 mls @ 100 mls/hr IV.CONT .Q10H [facility] Last Admin: 07/26/18 02:25 Dose: 100 mls/hr Lactulose (Lactulose Liq) 30 ml PO DAILY PRN PRN Reason: SEVERE CONSITIPATION Ondansetron HCl (Zofran Inj) 4 mg IV.PUSH Q6H PRN PRN Reason: NAUSEA OR VOMITING Pantoprazole Sodium (Protonix) 40 mg PO DAILY [facility] Senna/Docusate Sodium (Gail-Colace) 1 tab PO BID [facility] Last Admin: 07/26/18 08:50 Dose: Not Given Sennosides (Senokot) 17.2 mg PO Q12H PRN PRN Reason: Moderate Constipation Sodium Chloride (Ns Flush) 2 ml IV.FLUSH PRN PRN PRN Reason: FLUSH AFTER USING IV ACCESS <Yudy Wheatley - Last Filed: 07/26/18 11:22> Active Medications: Active Medications Acetaminophen (Tylenol) 650 mg PO Q4H PRN PRN Reason: Temp > 100.4 Al Hydroxide/Mg Hydroxide (Milk Of Magnesia Liq) 30 ml PO Q12H PRN PRN Reason: Mild Constipation Bisacodyl (Dulcolax Supp) 10 mg RECTAL DAILY PRN PRN Reason: SEVERE CONSITIPATION Clonidine HCl (Catapres) 0.1 mg PO Q6H PRN PRN Reason: SEE LABEL COMMENTS Heparin Sodium (Porcine) (Heparin Inj) 5,000 units SQ Q8HR [facility] Last Admin: 07/26/18 20:54 Dose: 5,000 units Sodium Chloride (1/2 Normal Saline Inj) 1,000 mls @ 100 mls/hr IV.CONT .Q10H [facility] Last Admin: 07/26/18 20:55 Dose: Not Given Ceftriaxone Sodium 1,000 mg/ (Sodium Chloride) 100 mls @ 200 mls/hr IV.SIG Q24H [facility] Last Infusion: 07/26/18 17:37 Dose: Infused Vancomycin HCl 1,250 mg/ (Sodium Chloride) 262.5 mls @ 250 mls/hr IV.SIG Q24H [facility] Last Admin: 07/26/18 17:37 Dose: 250 mls/hr Lactulose (Lactulose Liq) 30 ml PO DAILY PRN PRN Reason: SEVERE CONSITIPATION Ondansetron HCl (Zofran Inj) 4 mg IV.PUSH Q6H PRN PRN Reason: NAUSEA OR VOMITING Pantoprazole Sodium (Protonix) 40 mg PO DAILY [facility] Last Admin: 07/26/18 11:53 Dose: 40 mg Pharmacy Profile Note (Vancomycin Consult Pharmacy) 1 each OTHER UNSCH PRN PRN Reason: Pharmacy to dose Senna/Docusate Sodium (Gail-Colace) 1 tab PO BID [facility] Last Admin: 07/26/18 20:49 Dose: 1 tab Sennosides (Senokot) 17.2 mg PO Q12H PRN PRN Reason: Moderate Constipation Sodium Chloride (Ns Flush) 2 ml IV.FLUSH PRN PRN PRN Reason: FLUSH AFTER USING IV ACCESS <Dorothea Ramirez - Last Filed: 07/26/18 22:36> Allergies Allergy/AdvReac Type Severity Reaction Status Date / Time No Known Allergies Allergy Verified 07/24/18 21:20 Home Medications Medication Instructions Recorded Confirmed Type Unable to Obtain Home Meds 07/24/18 07/24/18 History Exam Vital signs: Vital Signs 07/25/18 12:00 07/25/18 16:00 07/25/18 20:00 Temperature 98.0 F 97.5 F L 98.0 F Pulse Rate 66 81 64 Respiratory Rate 22 24 25 H Blood Pressure 173/78 H 151/62 H 136/61 Pulse Oximetry 99 98 100 07/26/18 02:00 07/26/18 03:00 07/26/18 04:00 Temperature 97.3 F L 97.3 F L Pulse Rate 68 66 66 Respiratory Rate 20 20 Blood Pressure 147/67 H 172/72 H Pulse Oximetry 99 99 07/26/18 05:00 07/26/18 06:00 07/26/18 07:00 Temperature Pulse Rate 60 71 61 Respiratory Rate Blood Pressure Pulse Oximetry 07/26/18 07:55 07/26/18 08:00 Temperature 98.2 F Pulse Rate 75 Respiratory Rate 18 Blood Pressure 135/84 Pulse Oximetry 97 98 Intake & Output 07/25/18 07/26/18 07/26/18 18:59 06:59 18:59 Intake Total 2250 / 2250 Output Total 400 / 400 Balance 1850 / 1850 Weight 77.1 kg Intake: IV 2250 / 2250 Heparin/D5W 25,000 U/250 mL 25, 250 / 250 000 unit In 250 ml @ Per Protocol IV.CONT TITRATE PRN Rx #:[id number] NS Inj 1,000 ML @ 100 mls/hr IV 1000 / 1000 .CONT .Q10H [facility]ANJ[facility] Rx#:[id number] 1/2 Normal Saline Inj 1,000 ML 1000 / 1000 @ 100 mls/hr IV.CONT .Q10H NIRANJAN Rx#:[id number] Output: Urine Amount (Catheter) 400 / 400 Female External 400 / 400 Other: # Voids 2 Date of Last Bowel Movement 07/24/18 07/25/18 07/25/18 Weight On Admission 77 kg - Constitutional no acute distress - Routine HEENT Exam Head: Present: normocephalic - Routine Respiratory Exam Present: CTA bilaterally - Routine Cardiovascular Exam Present: RRR - Routine Abdominal Exam Present: soft, normoactive bowel sounds. Absent: tenderness, distended - Routine Skin Exam Present: intact, dry, ecchymosis - Routine Neurological Exam Present: alert, oriented X3 <Yudy Wheatley - Last Filed: 07/26/18 11:22> Vital signs: Vital Signs 07/26/18 02:00 07/26/18 03:00 07/26/18 04:00 Temperature 97.3 F L 97.3 F L Pulse Rate 68 66 66 Respiratory Rate 20 20 Blood Pressure 147/67 H 172/72 H Pulse Oximetry 99 99 07/26/18 05:00 07/26/18 06:00 07/26/18 07:00 Temperature Pulse Rate 60 71 61 Respiratory Rate Blood Pressure Pulse Oximetry 07/26/18 07:55 07/26/18 08:00 07/26/18 09:00 Temperature 98.2 F Pulse Rate 64 76 Respiratory Rate 18 Blood Pressure 135/84 Pulse Oximetry 97 98 07/26/18 10:00 07/26/18 11:00 07/26/18 12:00 Temperature 98.0 F Pulse Rate 74 73 64 Respiratory Rate 18 Blood Pressure 115/56 L Pulse Oximetry 99 07/26/18 13:00 07/26/18 14:00 07/26/18 15:00 Temperature Pulse Rate 68 74 73 Respiratory Rate Blood Pressure Pulse Oximetry 07/26/18 16:00 07/26/18 17:00 07/26/18 18:00 Temperature 98.0 F Pulse Rate 70 70 82 Respiratory Rate 18 Blood Pressure 152/76 H Pulse Oximetry 96 07/26/18 19:00 07/26/18 20:00 07/26/18 21:00 Temperature 98.2 F Pulse Rate 84 73 82 Respiratory Rate 20 Blood Pressure 144/64 H Pulse Oximetry 98 07/26/18 22:00 Temperature Pulse Rate 79 Respiratory Rate Blood Pressure Pulse Oximetry Intake & Output 07/26/18 07/26/18 07/27/18 06:59 18:59 06:59 Intake Total 2250 / 2250 1340 / 1340 Output Total 400 / 400 500 / 500 Balance 1850 / 1850 840 / 840 Intake: IV 2250 / 2250 1100 / 1100 Heparin/D5W 25,000 U/250 mL 25, 250 / 250 000 unit In 250 ml @ Per Protocol IV.CONT TITRATE PRN Rx #:[id number] NS Inj 1,000 ML @ 100 mls/hr IV 1000 / 1000 .CONT .Q10H [facility]ANJAN Rx#:[id number] 1/2 Normal Saline Inj 1,000 ML 1000 / 1000 1000 / 1000 @ 100 mls/hr IV.CONT .Q10H [facility]ANJ[facility] Rx#:[id number] Rocephin Inj 1,000 MG In NS Inj 100 / 100 100 ML @ 200 mls/hr IV.SIG Q24H [facility]ANJAN Rx#:[id number] Oral 240 / 240 Output: Urine Amount (Catheter) 400 / 400 500 / 500 Female External 400 / 400 500 / 500 Other: # Voids 2 Date of Last Bowel Movement 07/25/18 07/26/18 07/25/18 # Bowel Movements 1 <Dorothea Ramirez - Last Filed: 07/26/18 22:36> Results - Labs CBC & Chem 7: 07/26/18 06:45 07/26/18 06:45 Labs: Laboratory Results - last 24 hr 07/25/18 07/25/18 07/25/18 09:44 12:00 13:29 WBC RBC Hgb Hct MCV MCH MCHC RDW Plt Count MPV APTT 32.4 H D Sodium Potassium Chloride Carbon Dioxide Anion Gap BUN Creatinine Estimated GFR Random Glucose Calcium Total Bilirubin 1.1 H Direct Bilirubin Indirect Bilirubin AST ALT Alkaline Phosphatase 55 Total Creatine Kinase 1240 H CK-MB (CK-2) 16.4 H CK-MB (CK-2) % 1.3 Troponin I 1.82 H* D Total Protein 6.1 L Albumin Nasal Screen MRSA (PCR) Not detected 07/25/18 07/26/18 07/26/18 23:58 06:45 06:45 WBC 10.4 RBC 3.86 L Hgb 12.4 Hct 36.8 MCV 95.3 MCH 32.0 MCHC 33.6 RDW 13.7 Plt Count 91 L MPV 11.0 APTT 22.5 L D Sodium 147 H Potassium 3.8 Chloride 114 H Carbon Dioxide 27.0 Anion Gap 6 BUN 38 H Creatinine 0.70 Estimated GFR 79 L Random Glucose 97 Calcium 8.1 L Total Bilirubin 0.5 Direct Bilirubin 0.2 Indirect Bilirubin 0.3 AST 131 H ALT 59 H Alkaline Phosphatase 46 Total Creatine Kinase 474 H CK-MB (CK-2) 8.3 H CK-MB (CK-2) % 1.8 Troponin I Total Protein 5.1 L D Albumin 2.2 L D Nasal Screen MRSA (PCR) 07/26/18 06:45 WBC RBC Hgb Hct MCV MCH MCHC RDW Plt Count MPV APTT 41.9 H D Sodium Potassium Chloride Carbon Dioxide Anion Gap BUN Creatinine Estimated GFR Random Glucose Calcium Total Bilirubin Direct Bilirubin Indirect Bilirubin AST ALT Alkaline Phosphatase Total Creatine Kinase CK-MB (CK-2) CK-MB (CK-2) % Troponin I Total Protein Albumin Nasal Screen MRSA (PCR) <Yudy Wheatley - Last Filed: 07/26/18 11:22> - Labs CBC & Chem 7: 07/26/18 06:45 07/26/18 06:45 Labs: Laboratory Results - last 24 hr 07/25/18 07/25/18 07/26/18 01:36 23:58 06:45 WBC 10.4 RBC 3.86 L Hgb 12.4 Hct 36.8 MCV 95.3 MCH 32.0 MCHC 33.6 RDW 13.7 Plt Count 91 L MPV 11.0 APTT 22.5 L D Sodium Potassium Chloride Carbon Dioxide Anion Gap BUN Creatinine Estimated GFR Random Glucose Calcium Total Bilirubin Direct Bilirubin Indirect Bilirubin AST ALT Alkaline Phosphatase Total Creatine Kinase CK-MB (CK-2) CK-MB (CK-2) % Total Protein Albumin Urine Color Yellow Urine Clarity Clear Urine pH 5.5 Ur Specific [place] Greater/equal 1.030 Urine Protein 30 H Urine Glucose (UA) Negative Urine Ketones Trace H Urine Occult Blood Large H Urine Nitrate Negative Urine Bilirubin Negative Urine Urobilinogen 0.2 Ur Leukocyte Esterase Negative Urine RBC 0-3 Urine WBC 6-8 H Ur Squamous Epith Cells 0-5 Urine Bacteria Many H Micro UA Comment Culture indicated Ur Microscopic Review Microscopic reviewed Urine Culture Comments Culture indicated 07/26/18 07/26/18 06:45 06:45 WBC RBC Hgb Hct MCV MCH MCHC RDW Plt Count MPV APTT 41.9 H D Sodium 147 H Potassium 3.8 Chloride 114 H Carbon Dioxide 27.0 Anion Gap 6 BUN 38 H Creatinine 0.70 Estimated GFR 79 L Random Glucose 97 Calcium 8.1 L Total Bilirubin 0.5 Direct Bilirubin 0.2 Indirect Bilirubin 0.3 AST 131 H ALT 59 H Alkaline Phosphatase 46 Total Creatine Kinase 474 H CK-MB (CK-2) 8.3 H CK-MB (CK-2) % 1.8 Total Protein 5.1 L D Albumin 2.2 L D Urine Color Urine Clarity Urine pH Ur Specific [place] Urine Protein Urine Glucose (UA) Urine Ketones Urine Occult Blood Urine Nitrate Urine Bilirubin Urine Urobilinogen Ur Leukocyte Esterase Urine RBC Urine WBC Ur Squamous Epith Cells Urine Bacteria Micro UA Comment Ur Microscopic Review Urine Culture Comments <Dorohtea Ramirez - Last Filed: 07/26/18 22:36> Assessment and Plan - Plan - Melena, coffee ground emesis-Symptoms started following eating sandwich made with roast beef that possibly was rancid. Shortly after, pt noticed coffee ground emesis and black stools. She went to the bath tub to clean herself but could not get out. Was there from Saturday until Saturday when she was found by neighbor. Workup revealed an elevated troponin and rhabdomyolysis. Patient denies previous hx of this, not on blood thinner. Denies abd pain or hematochezia. Symptoms have resolved. There is a drop in hgb from 15 - 12. - Elevated LFTs- likely shocked liver secondary to above, will monitor, pt denies alcohol intake - rhabdomyolysis. - elevated troponin- Cardiology on the case, work up pending, - NEAL- Secondary to above Plan: - Diet per attending - EGD pending cardiology clearance - Consents - Monitor labs - Cont. ppi - Monitor hh - Transfuse as needed - Supportive care - Pt seen and examined by Dr. Ramirez and myself and this note is written on her behalf. <Yudy Wheatley - Last Filed: 07/26/18 11:22> - Attending Attestation seen, examined agree with above <Dorothea Ramirez - Last Filed: 07/26/18 22:36>
[2018-07-26] MEDS ORDERED: Vancomycin Consult Pharmacy OTHER PRN (14:57)
--- NOTE | 2018-07-26 14:59 | P.PNCA ---
Subjective Interval history: No events overnight More awake today, feeling better No chest pain/SOB through the event or today Medications and Allergies Active Medications: Active Medications Acetaminophen (Tylenol) 650 mg PO Q4H PRN PRN Reason: Temp > 100.4 Al Hydroxide/Mg Hydroxide (Milk Of Magnesia Liq) 30 ml PO Q12H PRN PRN Reason: Mild Constipation Bisacodyl (Dulcolax Supp) 10 mg RECTAL DAILY PRN PRN Reason: SEVERE CONSITIPATION Clonidine HCl (Catapres) 0.1 mg PO Q6H PRN PRN Reason: SEE LABEL COMMENTS Heparin Sodium/Dextrose (Heparin/D5w 25,000 U/250 Ml) 25,000 unit in 250 mls @ 0 mls/hr IV.CONT TITRATE PRN; Protocol PRN Reason: Per Protocol Last Admin: 07/26/18 03:59 Dose: 1,300 units/hr, 13 mls/hr Sodium Chloride (1/2 Normal Saline Inj) 1,000 mls @ 100 mls/hr IV.CONT .Q10H [facility] Last Admin: 07/26/18 02:25 Dose: 100 mls/hr Lactulose (Lactulose Liq) 30 ml PO DAILY PRN PRN Reason: SEVERE CONSITIPATION Ondansetron HCl (Zofran Inj) 4 mg IV.PUSH Q6H PRN PRN Reason: NAUSEA OR VOMITING Pantoprazole Sodium (Protonix) 40 mg PO DAILY [facility] Last Admin: 07/26/18 11:53 Dose: 40 mg Senna/Docusate Sodium (Gail-Colace) 1 tab PO BID [facility] Last Admin: 07/26/18 08:50 Dose: Not Given Sennosides (Senokot) 17.2 mg PO Q12H PRN PRN Reason: Moderate Constipation Sodium Chloride (Ns Flush) 2 ml IV.FLUSH PRN PRN PRN Reason: FLUSH AFTER USING IV ACCESS Allergies Allergy/AdvReac Type Severity Reaction Status Date / Time No Known Allergies Allergy Verified 07/24/18 21:20 Home Medications Medication Instructions Recorded Confirmed Type Unable to Obtain Home Meds 07/24/18 07/24/18 History Physical Exam Vital signs: Vital Signs 07/25/18 16:00 07/25/18 20:00 07/26/18 02:00 Temperature 97.5 F L 98.0 F 97.3 F L Pulse Rate 81 64 68 Respiratory Rate 24 25 H 20 Blood Pressure 151/62 H 136/61 147/67 H Pulse Oximetry 98 100 99 07/26/18 03:00 07/26/18 04:00 07/26/18 05:00 Temperature 97.3 F L Pulse Rate 66 66 60 Respiratory Rate 20 Blood Pressure 172/72 H Pulse Oximetry 99 07/26/18 06:00 07/26/18 07:00 07/26/18 07:55 Temperature Pulse Rate 71 61 Respiratory Rate Blood Pressure Pulse Oximetry 97 07/26/18 08:00 07/26/18 09:00 07/26/18 10:00 Temperature 98.2 F Pulse Rate 64 76 74 Respiratory Rate 18 Blood Pressure 135/84 Pulse Oximetry 98 07/26/18 11:00 07/26/18 12:00 07/26/18 13:00 Temperature 98.0 F Pulse Rate 73 64 68 Respiratory Rate 18 Blood Pressure 115/56 L Pulse Oximetry 99 07/26/18 14:00 Temperature Pulse Rate 74 Respiratory Rate Blood Pressure Pulse Oximetry Intake & Output 07/25/18 07/26/18 07/26/18 18:59 06:59 18:59 Intake Total 2250 / 2250 Output Total 400 / 400 Balance 1850 / 1850 Weight 77.1 kg Intake: IV 2250 / 2250 Heparin/D5W 25,000 U/250 mL 25, 250 / 250 000 unit In 250 ml @ Per Protocol IV.CONT TITRATE PRN Rx #:[id number] NS Inj 1,000 ML @ 100 mls/hr IV 1000 / 1000 .CONT .Q10H [facility]AN[facility]AN Rx#:[id number] 1/2 Normal Saline Inj 1,000 ML 1000 / 1000 @ 100 mls/hr IV.CONT .Q10H NIRANJAN Rx#:[id number] Output: Urine Amount (Catheter) 400 / 400 Female External 400 / 400 Other: # Voids 2 Date of Last Bowel Movement 07/24/18 07/25/18 07/25/18 Weight On Admission 77 kg Narrative: GENERAL: Elderly and frail female CARDIOVASCULAR: Normal rate and regular rhythm. RESPIRATORY: No accessory muscle use. Clear to auscultation. Breath sounds equal bilaterally. GASTROINTESTINAL: Abdomen soft, non-tender, nondistended. MUSCULOSKELETAL: Extremities without clubbing, cyanosis, or edema. NEUROLOGICAL: Awake and alert. Generalized weakness. - Urinary Catheter Management Female External Cath placed during this visit: no Results 07/26/18 06:45 07/26/18 06:45 Cardiac Enzymes 07/24/18 07/24/18 07/24/18 Range/Units 22:32 22:32 23:31 AST 229 H (15-37) U/L Lactate Dehydrogenase 671 H (84-246) U/L CK-MB (CK-2) 23.8 H (0.5-3.6) ng/mL Troponin I 2.91 H* (0.02-0.05) ng/mL B-Natriuretic Peptide (0-100) pg/mL 07/24/18 07/25/18 07/25/18 Range/Units 23:33 03:30 09:44 AST 201 H (15-37) U/L Lactate Dehydrogenase (84-246) U/L CK-MB (CK-2) 18.7 H 16.4 H (0.5-3.6) ng/mL Troponin I 2.16 H* D 1.82 H* D (0.02-0.05) ng/mL B-Natriuretic Peptide 117 H (0-100) pg/mL 07/26/18 Range/Units 06:45 AST 131 H (15-37) U/L Lactate Dehydrogenase (84-246) U/L CK-MB (CK-2) 8.3 H (0.5-3.6) ng/mL Troponin I (0.02-0.05) ng/mL B-Natriuretic Peptide (0-100) pg/mL Coagulation 07/24/18 07/25/18 07/25/18 Range/Units 23:33 06:40 09:44 PT 11.6 (9.8-11.6) sec APTT 24.0 L 45.4 H D (24.3-30.1) sec B-Natriuretic Peptide 117 H (0-100) pg/mL 07/25/18 07/25/18 07/26/18 Range/Units 13:29 23:58 06:45 PT (9.8-11.6) sec APTT 32.4 H D 22.5 L D 41.9 H D (24.3-30.1) sec B-Natriuretic Peptide (0-100) pg/mL CBC 07/24/18 07/25/18 07/25/18 Range/Units 22:05 06:40 09:44 WBC 18.2 H 14.1 H 13.7 H (4.0-11.0) th/mm3 RBC 4.94 4.07 4.47 (4.00-5.30) mil/mm3 Hgb 15.3 13.1 D 14.1 (11.6-15.3) gm/dL Hct 46.2 H 38.2 43.4 (35.0-46.0) % Plt Count 121 L 103 L 107 L (150-450) th/mm3 Neut # (Auto) 15.2 H 10.7 H (1.8-7.7) th/mm3 Lymph # (Auto) 1.1 1.6 (1.0-4.8) th/mm3 [place] # (Auto) 1.6 H 1.3 H (0.0-0.9) th/mm3 Eos # (Auto) 0.0 0.0 (0.0-0.4) th/mm3 Baso # (Auto) 0.3 H 0.0 (0.0-0.2) th/mm3 07/26/18 Range/Units 06:45 WBC 10.4 (4.0-11.0) th/mm3 RBC 3.86 L (4.00-5.30) mil/mm3 Hgb 12.4 (11.6-15.3) gm/dL Hct 36.8 (35.0-46.0) % Plt Count 91 L (150-450) th/mm3 Neut # (Auto) (1.8-7.7) th/mm3 Lymph # (Auto) (1.0-4.8) th/mm3 [place] # (Auto) (0.0-0.9) th/mm3 Eos # (Auto) (0.0-0.4) th/mm3 Baso # (Auto) (0.0-0.2) th/mm3 Comprehensive Metabolic Panel 07/24/18 07/25/18 07/26/18 Range/Units 22:32 09:44 06:45 Sodium 152 H 154 H 147 H (136-145) meq/L Potassium 4.6 3.6 D 3.8 (3.5-5.1) meq/L Chloride 117 H 116 H 114 H (98-107) meq/L Carbon Dioxide 25.9 26.2 27.0 (21.0-32.0) meq/L BUN 59 H 50 H 38 H (7-18) mg/dL Creatinine 1.30 H 0.95 0.70 (0.50-1.00) mg/dL Calcium 8.0 L 8.3 L 8.1 L (8.5-10.1) mg/dL Direct Bilirubin 0.2 (0.0-0.2) mg/dL Indirect Bilirubin 0.3 (0.0-0.8) mg/dL AST 229 H 201 H 131 H (15-37) U/L ALT 70 H 68 H 59 H (10-53) U/L Alkaline Phosphatase 51 55 46 (45-117) U/L Total Protein 6.3 L 6.1 L 5.1 L D (6.4-8.2) g/dL Albumin 2.8 L 2.8 L 2.2 L D (3.4-5.0) g/dL Intake and Output 07/25/18 07/26/18 07/26/18 22:59 06:59 14:59 Intake Total 2250 / 2250 Output Total 400 / 400 Balance -400 / -400 2250 / 2250 Intake: IV 2250 / 2250 Heparin/D5W 25,000 U/250 mL 25, 250 / 250 000 unit In 250 ml @ Per Protocol IV.CONT TITRATE PRN Rx #:[id number] NS Inj 1,000 ML @ 100 mls/hr IV 1000 / 1000 .CONT .Q10H [facility] Rx#:[id number] 1/2 Normal Saline Inj 1,000 ML 1000 / 1000 @ 100 mls/hr IV.CONT .Q10H [facility] Rx#:[id number] Output: Urine Amount (Catheter) 400 / 400 Female External 400 / 400 Other: # Voids 2 Date of Last Bowel Movement 07/25/18 07/25/18 07/25/18 Weight 77.1 kg Weight On Admission 77 kg - Imaging and Cardiology Imaging: Impressions Chest X-Ray 07/24/18 21:39 CONCLUSION: Minimal prominence of interstitium. This could represent some pulmonary venous hypertension or underlying chronic interstitial change. Chest X-Ray 07/24/18 23:33 CONCLUSION: Minimal basilar atelectasis or scarring. Tortuous aorta. Assessment and Plan - Assessment (1) Elevated troponin Code(s): R74.8 - Abnormal levels of other serum enzymes Status: Acute (2) Gastroenteritis Code(s): K52.9 - Noninfective gastroenteritis and colitis, unspecified Status : Acute (3) Rhabdomyolysis Code(s): M62.82 - Rhabdomyolysis Status: Acute - Plan 1) Gastroenteritis from rancid meat GI evaluation 2) Question of hematemesis/melanotic stool 3) Elevated troponin Most likely Type 2 due to Rhabdomyolysis and dehydration Discussed ischemic evaluation, but she would not like to go through that at her age which is understandable 4) Rhabdomyolysis Due to laying in her bathtub for a few days Continue fluids 5) Dehydration 6) 2D echo pending 7) Plan to stop heparin drip 8) Pre-operative CV evaluation She's at an elevated risk due to elevated troponins, although believed to be Type 2 in nature [address] to decrease her risk, she's hemodynamically/electrically stable without CP/SOB So if information obtained from EGD felt to be necessary then may proceed as an elevated risk
[2018-07-26] MEDS ORDERED: Vancomycin Inj 1 GM/200 ML PIGGYBACK IV.SIG SCH (15:00)
[2018-07-26] MEDS ORDERED: Vancomycin Inj 1,250 MG in Sodium Chlor 0.9% Inj 250 ML IV.SIG SCH (16:00)
--- NOTE | 2018-07-26 18:15 | ECHRPT ---
Indication: CORONARY ATHEROSCLEROSIS CONCLUSIONS The left ventricular systolic function is normal with an estimated ejection fraction in the range of 55-60%. Mild mitral valve regurgitation. Mild mitral valve stenosis (mean grad 4, MVA 1.64). Moderate aortic valve stenosis (peak grad 46, mean grad 23, MARÍA 1.35). There is mild tricuspid valve regurgitation. BP: / HR: Rhythm: Sinus MEASUREMENTS (Male / Female) Normal Values Technical Quality:Poor 2D ECHO LV Diastolic Diameter PLAX 3.5 cm 4.2 - 5.9 / 3.9 - 5.3 cm LV Systolic Diameter PLAX 2.8 cm IVS Diastolic Thickness 1.0 cm 0.6 - 1.0 / 0.6 - 0.9 cm LVPW Diastolic Thickness 1.0 cm 0.6 - 1.0 / 0.6 - 0.9 cm LV Relative Wall Thickness 0.6 LVOT Diameter 2.4 cm Aortic Root Diameter 3.1 cm DOPPLER AV Peak Velocity 317.0 cm/s AV Peak Gradient 40.2 mmHg AV Mean Gradient 20.5 mmHg AV Velocity Time Integral 62.0 cm LVOT Peak Velocity 106.0 cm/s LVOT Peak Gradient 4.5 mmHg LVOT Velocity Time Integral 21.3 cm AV Area Cont Eq vti 1.6 cm AV Area Cont Eq pk 1.5 cm MV Peak Velocity 172.0 cm/s MV Peak Gradient 11.8 mmHg MV Mean Velocity 98.4 cm/s MV Mean Gradient 4.5 mmHg Mitral E Point Velocity 140.3 cm/s Mitral A Point Velocity 148.0 cm/s Mitral E to A Ratio 0.9 LV E' Lateral Velocity 9.6 cm/s Mitral E to LV E' Lateral Ratio 14.7 LV E' Septal Velocity 4.8 cm/s Mitral E to LV E' Septal Ratio 29.3 TR Peak Velocity 295.0 cm/s TR Peak Gradient 35.0 mmHg Right Atrial Pressure 10.0 mmHg Pulmonary Artery Systolic Pressu 44.8 mmHg Right Ventricular Systolic Press 44.8 mmHg FINDINGS LEFT VENTRICLE Normal left ventricular size. Wall thickness is measured at the upper limits of normal. The left ventricular systolic function is normal with an estimated ejection fraction in the range of 55-60%. No regional wall motion abnormalities are present. RIGHT VENTRICLE Normal right ventricular size and systolic function. LEFT ATRIUM The left atrial size is moderately dilated. RIGHT ATRIUM The right atrial size is normal. ATRIAL SEPTUM The interatrial septum not well visualized AORTA The aortic root and proximal ascending aorta are not well visualized. MITRAL VALVE Moderate mitral annular calcification, as well as leaflet calcification. Mild mitral valve regurgitation. Mild mitral valve stenosis (mean grad 4, MVA 1.64). AORTIC VALVE Moderate thickening of the aortic valve leaflets. No aortic valve regurgitation. Moderate aortic valve stenosis (peak grad 46, mean grad 23, MARÍA 1.35). TRICUSPID VALVE There is mild tricuspid valve regurgitation. The estimated pulmonary arterial pressure is 44.8 mmHg. PULMONARY VALVE The pulmonary valve is not well visualized. VESSELS The inferior vena cava was not well visualized. PERICARDIUM No pericardial effusion. Milo Flowers DO (Electronically Signed) Final Date:26 July 2018 18:14
[2018-07-26] MEDS: Heparin - SQ 10,000 UNITS/ML Vial SQ SCH (20:54)
[2018-07-27] MEDS: Heparin - SQ 10,000 UNITS/ML Vial SQ SCH ×4 (00:29→20:59)
[2018-07-27] MEDS: Sodium Chloride 0.45 % Inj 1,000 ML IV.CONT SCH (02:00)
[2018-07-27 07:19] LABS: Hematocrit 36.2 % (35.0-46.0); Hemoglobin 12.2 gm/dL (11.6-15.3); Mean Corpuscular HGB Conc 33.8 % (32.0-36.0); Mean Corpuscular Hemoglobin 32.1 pg (27.0-34.0); Mean Corpuscular Volume 94.9 fL (80.0-100.0); Mean Platelet Volume 11.4 fL (7.0-11.0); Platelet Count 88 th/mm3 (150-450); Red Blood Count 3.81 mil/mm3 (4.00-5.30); Red Cell Distribution Width 13.7 % (11.6-17.2); White Blood Count 9.5 th/mm3 (4.0-11.0)
[2018-07-27 07:50] LABS: Alanine Aminotransferase 55 U/L (10-53); Albumin 2.3 g/dL (3.4-5.0); Alkaline Phosphatase 48 U/L (45-117); Anion Gap 7 meq/L (5-15); Aspartate Aminotransferase 76 U/L (15-37); Blood Urea Nitrogen 22 mg/dL (7-18); Calcium 8.1 mg/dL (8.5-10.1); Carbon Dioxide 27.1 meq/L (21.0-32.0); Chloride 116 meq/L (98-107); Creatine Kinase 113 U/L (26-192); Glomerular Filtration Rate Greater Than 89 mL/min (>89); Glucose,Random 92 mg/dL (74-106); Potassium 3.8 meq/L (3.5-5.1); Sodium 150 meq/L (136-145); Total Protein 5.2 g/dL (6.4-8.2); Vancomycin,Random 7.7 Comment
[2018-07-27] MEDS: Senna/Docusate Sodium 8.6/50 MG Tablet PO SCH ×2 (10:19→20:54)
[2018-07-27] MEDS ORDERED: Vancomycin Inj 1,250 MG in Sodium Chlor 0.9% Inj 250 ML IV.SIG SCH (12:00)
--- NOTE | 2018-07-27 13:16 | P.PNGI ---
Subjective Interval history: Pt is resting in bed, eat all of her breakfast, tolerated okay, no nausea, no vomiting, no abd pain, no more melena. <Yudy Wheatley - Last Filed: 07/27/18 13:10> Physical Exam Vital signs: Vital Signs 07/26/18 14:00 07/26/18 15:00 07/26/18 16:00 Temperature 98.0 F Pulse Rate 74 73 70 Respiratory Rate 18 Blood Pressure 152/76 H Pulse Oximetry 96 07/26/18 17:00 07/26/18 18:00 07/26/18 19:00 Temperature Pulse Rate 70 82 84 Respiratory Rate Blood Pressure Pulse Oximetry 07/26/18 20:00 07/26/18 21:00 07/26/18 22:00 Temperature 98.2 F Pulse Rate 73 82 79 Respiratory Rate 20 Blood Pressure 144/64 H Pulse Oximetry 98 07/26/18 23:00 07/27/18 00:00 07/27/18 01:00 Temperature 98.3 F Pulse Rate 74 80 73 Respiratory Rate 20 Blood Pressure 139/80 Pulse Oximetry 97 07/27/18 02:00 07/27/18 03:00 07/27/18 04:00 Temperature 98 F Pulse Rate 72 74 76 Respiratory Rate 18 Blood Pressure 128/79 Pulse Oximetry 97 07/27/18 05:00 07/27/18 05:52 07/27/18 07:00 Temperature Pulse Rate 77 75 71 Respiratory Rate Blood Pressure Pulse Oximetry 07/27/18 08:00 07/27/18 09:00 07/27/18 10:00 Temperature 98.2 F Pulse Rate 74 82 74 Respiratory Rate 18 Blood Pressure 148/70 H Pulse Oximetry 99 Intake & Output 07/26/18 07/27/18 07/27/18 18:59 06:59 18:59 Intake Total 1340 / 1340 1240 / 1240 Output Total 500 / 500 900 / 900 Balance 840 / 840 340 / 340 Weight 79.6 kg Intake: IV 1100 / 1100 1000 / 1000 1/2 Normal Saline Inj 1,000 ML 1000 / 1000 1000 / 1000 @ 100 mls/hr IV.CONT .Q10H [facility]AN[facility] Rx#:[id number] Rocephin Inj 1,000 MG In NS Inj 100 / 100 100 ML @ 200 mls/hr IV.SIG Q24H NIRANJAN Rx#:[id number] Oral 240 / 240 240 / 240 Output: Urine 900 / 900 Urine Amount (Catheter) 500 / 500 Female External 500 / 500 Other: Date of Last Bowel Movement 07/26/18 07/25/18 07/26/18 # Bowel Movements 1 0 Narrative: GENERAL: Elderly and frail female CARDIOVASCULAR: Normal rate and regular rhythm. RESPIRATORY: No accessory muscle use. Clear to auscultation. Breath sounds equal bilaterally. GASTROINTESTINAL: Abdomen soft, non-tender, nondistended. MUSCULOSKELETAL: Extremities without clubbing, cyanosis, or edema. NEUROLOGICAL: Awake and alert. - Urinary Catheter Management Female External Cath placed during this visit: no <Yudy Wheatley - Last Filed: 07/27/18 13:10> Vital signs: Vital Signs 07/26/18 15:00 07/26/18 16:00 07/26/18 17:00 Temperature 98.0 F Pulse Rate 73 70 70 Respiratory Rate 18 Blood Pressure 152/76 H Pulse Oximetry 96 07/26/18 18:00 07/26/18 19:00 07/26/18 20:00 Temperature 98.2 F Pulse Rate 82 84 73 Respiratory Rate 20 Blood Pressure 144/64 H Pulse Oximetry 98 07/26/18 21:00 07/26/18 22:00 07/26/18 23:00 Temperature Pulse Rate 82 79 74 Respiratory Rate Blood Pressure Pulse Oximetry 07/27/18 00:00 07/27/18 01:00 07/27/18 02:00 Temperature 98.3 F Pulse Rate 80 73 72 Respiratory Rate 20 Blood Pressure 139/80 Pulse Oximetry 97 07/27/18 03:00 07/27/18 04:00 07/27/18 05:00 Temperature 98 F Pulse Rate 74 76 77 Respiratory Rate 18 Blood Pressure 128/79 Pulse Oximetry 97 07/27/18 05:52 07/27/18 07:00 07/27/18 08:00 Temperature 98.2 F Pulse Rate 75 71 74 Respiratory Rate 18 Blood Pressure 148/70 H Pulse Oximetry 99 07/27/18 09:00 07/27/18 10:00 07/27/18 11:00 Temperature Pulse Rate 82 74 71 Respiratory Rate Blood Pressure Pulse Oximetry 07/27/18 12:00 07/27/18 13:00 Temperature 98.2 F Pulse Rate 74 82 Respiratory Rate 18 Blood Pressure 150/79 H Pulse Oximetry 98 Intake & Output 07/26/18 07/27/18 07/27/18 18:59 06:59 18:59 Intake Total 1340 / 1340 1240 / 1240 Output Total 500 / 500 900 / 900 Balance 840 / 840 340 / 340 Weight 79.6 kg Intake: IV 1100 / 1100 1000 / 1000 1/2 Normal Saline Inj 1,000 ML 1000 / 1000 1000 / 1000 @ 100 mls/hr IV.CONT .Q10H [facility]ANJAN Rx#:[id number] Rocephin Inj 1,000 MG In NS Inj 100 / 100 100 ML @ 200 mls/hr IV.SIG Q24H NIRANJAN Rx#:[id number] Oral 240 / 240 240 / 240 Output: Urine 900 / 900 Urine Amount (Catheter) 500 / 500 Female External 500 / 500 Other: Date of Last Bowel Movement 07/26/18 07/25/18 07/26/18 # Bowel Movements 1 0 - Urinary Catheter Management Female External Cath placed during this visit: no <Dorothea Ramirez - Last Filed: 07/27/18 14:11> Results - Labs CBC & Chem 7: 07/27/18 06:48 07/27/18 06:48 Laboratory Results - last 24 hr 07/27/18 07/27/18 06:48 06:48 WBC 9.5 RBC 3.81 L Hgb 12.2 Hct 36.2 MCV 94.9 MCH 32.1 MCHC 33.8 RDW 13.7 Plt Count 88 L MPV 11.4 H Sodium 150 H Potassium 3.8 Chloride 116 H Carbon Dioxide 27.1 Anion Gap 7 BUN 22 H Creatinine 0.61 Estimated GFR Greater than 89 Random Glucose 92 Calcium 8.1 L Total Bilirubin 0.6 Direct Bilirubin 0.2 Indirect Bilirubin 0.4 AST 76 H ALT 55 H Alkaline Phosphatase 48 Total Creatine Kinase 113 Total Protein 5.2 L Albumin 2.3 L Random Vancomycin 7.7 Microbiology 07/25/18 01:30 Blood - Peripheral Aerobic Blood Culture - Preliminary No growth in 2 days 07/25/18 01:30 Blood - Peripheral Anaerobic Blood Culture - Preliminary No growth in 2 days 07/25/18 01:36 Blood - Peripheral Aerobic Blood Culture - Preliminary Staphylococcus epidermidis 07/25/18 01:36 Blood - Peripheral Anaerobic Blood Culture - Preliminary Staphylococcus coag negative 07/25/18 01:36 Clean Catch Urine Urine Culture - Final Klebsiella pneumoniae 07/26/18 16:00 Stool Stool Occult Blood ([facility]) - Final Hemoccult negative <Yudy Wheatley - Last Filed: 07/27/18 13:10> - Labs CBC & Chem 7: 07/27/18 06:48 07/27/18 06:48 Laboratory Results - last 24 hr 07/27/18 07/27/18 06:48 06:48 WBC 9.5 RBC 3.81 L Hgb 12.2 Hct 36.2 MCV 94.9 MCH 32.1 MCHC 33.8 RDW 13.7 Plt Count 88 L MPV 11.4 H Sodium 150 H Potassium 3.8 Chloride 116 H Carbon Dioxide 27.1 Anion Gap 7 BUN 22 H Creatinine 0.61 Estimated GFR Greater than 89 Random Glucose 92 Calcium 8.1 L Total Bilirubin 0.6 Direct Bilirubin 0.2 Indirect Bilirubin 0.4 AST 76 H ALT 55 H Alkaline Phosphatase 48 Total Creatine Kinase 113 Total Protein 5.2 L Albumin 2.3 L Random Vancomycin 7.7 Microbiology 07/25/18 01:30 Blood - Peripheral Aerobic Blood Culture - Preliminary No growth in 2 days 07/25/18 01:30 Blood - Peripheral Anaerobic Blood Culture - Preliminary No growth in 2 days 07/25/18 01:36 Blood - Peripheral Aerobic Blood Culture - Preliminary Staphylococcus epidermidis 07/25/18 01:36 Blood - Peripheral Anaerobic Blood Culture - Preliminary Staphylococcus coag negative 07/25/18 01:36 Clean Catch Urine Urine Culture - Final Klebsiella pneumoniae 07/26/18 16:00 Stool Stool Occult Blood ([facility]ERRA) - Final Hemoccult negative <Dorothea Ramirez - Last Filed: 07/27/18 14:11> Assessment and Plan - Plan - Melena, coffee ground emesis- hgb is stable, no signs of active bleed. No more bleeding. Tolerating diet okay Symptoms started following eating sandwich made with roast beef that possibly was rancid. Shortly after, pt noticed coffee ground emesis and black stools. She went to the bath tub to clean herself but could not get out. Was there from Saturday until Saturday when she was found by neighbor. Workup revealed an elevated troponin and rhabdomyolysis. Patient denies previous hx of this, not on blood thinner. Denies abd pain or hematochezia. Symptoms have resolved. There is a drop in hgb from 15 - 12. - Elevated LFTs- Improving. likely shocked liver secondary to above, will monitor, pt denies alcohol intake - rhabdomyolysis. - elevated troponin- Cardiology on the case, work up pending, No plans for invasive procedures - NEAL- Improving, Secondary to above Plan: - SANJU - Case discussed with Dr. Flowers, pt is high risk from cardiac stand point, no plans for cardiac intervention Pt would like to hold off on EGD unless necessary - Monitor labs - Cont. ppi - Monitor hh - Transfuse as needed - Supportive care - Pt seen and examined by Dr. Ramirez and myself and this note is written on her behalf. <Yudy Wheatley - Last Filed: 07/27/18 13:10> - Attending Attestation seen, examined agree with above does not want egd we will order ct abd/pelvis for now <Dorothea Ramirez - Last Filed: 07/27/18 14:11>
--- NOTE | 2018-07-27 14:50 | P.PNCA ---
Subjective Interval history: No events overnight Frustrated by multiple sticks for IVs No CP/SOB Medications and Allergies Active Medications: Active Medications Acetaminophen (Tylenol) 650 mg PO Q4H PRN PRN Reason: Temp > 100.4 Al Hydroxide/Mg Hydroxide (Milk Of Magnesia Liq) 30 ml PO Q12H PRN PRN Reason: Mild Constipation Bisacodyl (Dulcolax Supp) 10 mg RECTAL DAILY PRN PRN Reason: SEVERE CONSITIPATION Clonidine HCl (Catapres) 0.1 mg PO Q6H PRN PRN Reason: SEE LABEL COMMENTS Heparin Sodium (Porcine) (Heparin Inj) 5,000 units SQ Q8HR COUNT INCLUDES THE [facility] Last Admin: 07/27/18 06:20 Dose: Not Given Sodium Chloride (1/2 Normal Saline Inj) 1,000 mls @ 100 mls/hr IV.CONT .Q10H COUNT INCLUDES THE [facility] Last Admin: 07/27/18 02:00 Dose: 100 mls/hr Ceftriaxone Sodium 1,000 mg/ (Sodium Chloride) 100 mls @ 200 mls/hr IV.SIG Q24H COUNT INCLUDES THE [facility] Last Infusion: 07/26/18 17:37 Dose: Infused Vancomycin HCl 1,250 mg/ (Sodium Chloride) 262.5 mls @ 250 mls/hr IV.SIG Q18H COUNT INCLUDES THE [facility] Last Admin: 07/27/18 12:36 Dose: 250 mls/hr Lactulose (Lactulose Liq) 30 ml PO DAILY PRN PRN Reason: SEVERE CONSITIPATION Miscellaneous Information ([facility] Ordered Lab Info) 0 each OTHER ONCE ONE Stop: 07/29/18 17:46 Ondansetron HCl (Zofran Inj) 4 mg IV.PUSH Q6H PRN PRN Reason: NAUSEA OR VOMITING Pantoprazole Sodium (Protonix) 40 mg PO DAILY COUNT INCLUDES THE [facility] Last Admin: 07/27/18 10:19 Dose: Not Given Pharmacy Profile Note (Vancomycin Consult Pharmacy) 1 each OTHER UNSCH PRN PRN Reason: Pharmacy to dose Senna/Docusate Sodium (Gail-Colace) 1 tab PO BID COUNT INCLUDES THE [facility] Last Admin: 07/27/18 10:19 Dose: Not Given Sennosides (Senokot) 17.2 mg PO Q12H PRN PRN Reason: Moderate Constipation Sodium Chloride (Ns Flush) 2 ml IV.FLUSH PRN PRN PRN Reason: FLUSH AFTER USING IV ACCESS Allergies Allergy/AdvReac Type Severity Reaction Status Date / Time No Known Allergies Allergy Verified 07/24/18 21:20 Home Medications Medication Instructions Recorded Confirmed Type Unable to Obtain Home Meds 07/24/18 07/24/18 History Physical Exam Vital signs: Vital Signs 07/26/18 15:00 07/26/18 16:00 07/26/18 17:00 Temperature 98.0 F Pulse Rate 73 70 70 Respiratory Rate 18 Blood Pressure 152/76 H Pulse Oximetry 96 07/26/18 18:00 07/26/18 19:00 07/26/18 20:00 Temperature 98.2 F Pulse Rate 82 84 73 Respiratory Rate 20 Blood Pressure 144/64 H Pulse Oximetry 98 07/26/18 21:00 07/26/18 22:00 07/26/18 23:00 Temperature Pulse Rate 82 79 74 Respiratory Rate Blood Pressure Pulse Oximetry 07/27/18 00:00 07/27/18 01:00 07/27/18 02:00 Temperature 98.3 F Pulse Rate 80 73 72 Respiratory Rate 20 Blood Pressure 139/80 Pulse Oximetry 97 07/27/18 03:00 07/27/18 04:00 07/27/18 05:00 Temperature 98 F Pulse Rate 74 76 77 Respiratory Rate 18 Blood Pressure 128/79 Pulse Oximetry 97 07/27/18 05:52 07/27/18 07:00 07/27/18 08:00 Temperature 98.2 F Pulse Rate 75 71 74 Respiratory Rate 18 Blood Pressure 148/70 H Pulse Oximetry 99 07/27/18 09:00 07/27/18 10:00 07/27/18 11:00 Temperature Pulse Rate 82 74 71 Respiratory Rate Blood Pressure Pulse Oximetry 07/27/18 12:00 07/27/18 13:00 Temperature 98.2 F Pulse Rate 74 82 Respiratory Rate 18 Blood Pressure 150/79 H Pulse Oximetry 98 Intake & Output 07/26/18 07/27/18 07/27/18 18:59 06:59 18:59 Intake Total 1340 / 1340 1240 / 1240 Output Total 500 / 500 900 / 900 Balance 840 / 840 340 / 340 Weight 79.6 kg Intake: IV 1100 / 1100 1000 / 1000 1/2 Normal Saline Inj 1,000 ML 1000 / 1000 1000 / 1000 @ 100 mls/hr IV.CONT .Q10H NIRANJAN Rx#:[id number] Rocephin Inj 1,000 MG In NS Inj 100 / 100 100 ML @ 200 mls/hr IV.SIG Q24H NIRANJAN Rx#:[id number] Oral 240 / 240 240 / 240 Output: Urine 900 / 900 Urine Amount (Catheter) 500 / 500 Female External 500 / 500 Other: Date of Last Bowel Movement 07/26/18 07/25/18 07/26/18 # Bowel Movements 1 0 Narrative: GENERAL: Elderly and frail female CARDIOVASCULAR: Normal rate and regular rhythm. RESPIRATORY: No accessory muscle use. Clear to auscultation. Breath sounds equal bilaterally. GASTROINTESTINAL: Abdomen soft, non-tender, nondistended. MUSCULOSKELETAL: Extremities without clubbing, cyanosis, or edema. NEUROLOGICAL: Awake and alert. - Urinary Catheter Management Female External Cath placed during this visit: no Results 07/27/18 06:48 07/27/18 06:48 Cardiac Enzymes 07/26/18 07/27/18 Range/Units 06:45 06:48 AST 131 H 76 H (15-37) U/L CK-MB (CK-2) 8.3 H (0.5-3.6) ng/mL Coagulation 07/25/18 07/26/18 Range/Units 23:58 06:45 APTT 22.5 L D 41.9 H D (24.3-30.1) sec CBC 07/26/18 07/27/18 Range/Units 06:45 06:48 WBC 10.4 9.5 (4.0-11.0) th/mm3 RBC 3.86 L 3.81 L (4.00-5.30) mil/mm3 Hgb 12.4 12.2 (11.6-15.3) gm/dL Hct 36.8 36.2 (35.0-46.0) % Plt Count 91 L 88 L (150-450) th/mm3 Comprehensive Metabolic Panel 07/26/18 07/27/18 Range/Units 06:45 06:48 Sodium 147 H 150 H (136-145) meq/L Potassium 3.8 3.8 (3.5-5.1) meq/L Chloride 114 H 116 H (98-107) meq/L Carbon Dioxide 27.0 27.1 (21.0-32.0) meq/L BUN 38 H 22 H (7-18) mg/dL Creatinine 0.70 0.61 (0.50-1.00) mg/dL Calcium 8.1 L 8.1 L (8.5-10.1) mg/dL Direct Bilirubin 0.2 0.2 (0.0-0.2) mg/dL Indirect Bilirubin 0.3 0.4 (0.0-0.8) mg/dL AST 131 H 76 H (15-37) U/L ALT 59 H 55 H (10-53) U/L Alkaline Phosphatase 46 48 (45-117) U/L Total Protein 5.1 L D 5.2 L (6.4-8.2) g/dL Albumin 2.2 L D 2.3 L (3.4-5.0) g/dL Intake and Output 07/26/18 07/27/18 07/27/18 22:59 06:59 14:59 Intake Total 340 / 340 1240 / 1240 Output Total 500 / 500 900 / 900 Balance -160 / -160 340 / 340 Intake: IV 100 / 100 1000 / 1000 1/2 Normal Saline Inj 1,000 ML 1000 / 1000 @ 100 mls/hr IV.CONT .Q10H COUNT INCLUDES THE [facility] Rx#:[id number] Rocephin Inj 1,000 MG In NS Inj 100 / 100 100 ML @ 200 mls/hr IV.SIG Q24H COUNT INCLUDES THE [facility] Rx#:[id number] Oral 240 / 240 240 / 240 Output: Urine 900 / 900 Urine Amount (Catheter) 500 / 500 Female External 500 / 500 Other: Date of Last Bowel Movement 07/25/18 07/25/18 07/26/18 # Bowel Movements 1 0 Weight 79.6 kg Assessment and Plan - Assessment (1) Elevated troponin Code(s): R74.8 - Abnormal levels of other serum enzymes Status: Acute (2) Gastroenteritis Code(s): K52.9 - Noninfective gastroenteritis and colitis, unspecified Status : Acute (3) Rhabdomyolysis Code(s): M62.82 - Rhabdomyolysis Status: Acute - Plan 1) Gastroenteritis from rancid meat GI evaluation Hold off on EGD per patient's wishes 2) Question of hematemesis/melanotic stool 3) Elevated troponin Most likely Type 2 due to Rhabdomyolysis and dehydration Discussed ischemic evaluation, but she would not like to go through that at her age which is understandable 4) Rhabdomyolysis Due to laying in her bathtub for a few days Continue fluids 5) Dehydration 6) EF 55-60%, mild MS, moderate 7) Pre-operative CV evaluation She's at an elevated risk due to elevated troponins, although believed to be Type [address] to decrease her risk, she's hemodynamically/electrically stable without CP/SOB So if information obtained from EGD felt to be necessary then may proceed as an elevated risk GI discussed with patient, she would like to hold off on EGD
--- NOTE | 2018-07-27 15:16 | P.PNIM ---
Subjective Interval history: Patient reports feeling tired. Otherwise no new complaints. She is tolerating her diet. No nausea or vomiting. No melena. Physical Exam Vital signs: Vital Signs 07/26/18 16:00 07/26/18 17:00 07/26/18 18:00 Temperature 98.0 F Pulse Rate 70 70 82 Respiratory Rate 18 Blood Pressure 152/76 H Pulse Oximetry 96 07/26/18 19:00 07/26/18 20:00 07/26/18 21:00 Temperature 98.2 F Pulse Rate 84 73 82 Respiratory Rate 20 Blood Pressure 144/64 H Pulse Oximetry 98 07/26/18 22:00 07/26/18 23:00 07/27/18 00:00 Temperature 98.3 F Pulse Rate 79 74 80 Respiratory Rate 20 Blood Pressure 139/80 Pulse Oximetry 97 07/27/18 01:00 07/27/18 02:00 07/27/18 03:00 Temperature Pulse Rate 73 72 74 Respiratory Rate Blood Pressure Pulse Oximetry 07/27/18 04:00 07/27/18 05:00 07/27/18 05:52 Temperature 98 F Pulse Rate 76 77 75 Respiratory Rate 18 Blood Pressure 128/79 Pulse Oximetry 97 07/27/18 07:00 07/27/18 08:00 07/27/18 09:00 Temperature 98.2 F Pulse Rate 71 74 82 Respiratory Rate 18 Blood Pressure 148/70 H Pulse Oximetry 99 07/27/18 10:00 07/27/18 11:00 07/27/18 12:00 Temperature 98.2 F Pulse Rate 74 71 74 Respiratory Rate 18 Blood Pressure 150/79 H Pulse Oximetry 98 07/27/18 13:00 Temperature Pulse Rate 82 Respiratory Rate Blood Pressure Pulse Oximetry Intake & Output 07/26/18 07/27/18 07/27/18 18:59 06:59 18:59 Intake Total 1340 / 1340 1240 / 1240 Output Total 500 / 500 900 / 900 Balance 840 / 840 340 / 340 Weight 79.6 kg Intake: IV 1100 / 1100 1000 / 1000 1/2 Normal Saline Inj 1,000 ML 1000 / 1000 1000 / 1000 @ 100 mls/hr IV.CONT .Q10H [facility]ANJ[facility] Rx#:[id number] Rocephin Inj 1,000 MG In NS Inj 100 / 100 100 ML @ 200 mls/hr IV.SIG Q24H NIRANJAN Rx#:[id number] Oral 240 / 240 240 / 240 Output: Urine 900 / 900 Urine Amount (Catheter) 500 / 500 Female External 500 / 500 Other: Date of Last Bowel Movement 07/26/18 07/25/18 07/26/18 # Bowel Movements 1 0 Narrative: GENERAL: Elderly and frail female CARDIOVASCULAR: Normal rate and regular rhythm. RESPIRATORY: No accessory muscle use. Clear to auscultation. Breath sounds equal bilaterally. GASTROINTESTINAL: Abdomen soft, non-tender, nondistended. MUSCULOSKELETAL: Extremities without clubbing, cyanosis, or edema. NEUROLOGICAL: Awake and alert. - Urinary Catheter Management Female External Cath placed during this visit: no Results - Labs CBC & Chem 7: 07/27/18 06:48 07/27/18 06:48 Laboratory Results - last 24 hr 07/27/18 07/27/18 06:48 06:48 WBC 9.5 RBC 3.81 L Hgb 12.2 Hct 36.2 MCV 94.9 MCH 32.1 MCHC 33.8 RDW 13.7 Plt Count 88 L MPV 11.4 H Sodium 150 H Potassium 3.8 Chloride 116 H Carbon Dioxide 27.1 Anion Gap 7 BUN 22 H Creatinine 0.61 Estimated GFR Greater than 89 Random Glucose 92 Calcium 8.1 L Total Bilirubin 0.6 Direct Bilirubin 0.2 Indirect Bilirubin 0.4 AST 76 H ALT 55 H Alkaline Phosphatase 48 Total Creatine Kinase 113 Total Protein 5.2 L Albumin 2.3 L Random Vancomycin 7.7 Microbiology 07/25/18 01:30 Blood - Peripheral Aerobic Blood Culture - Preliminary No growth in 2 days 07/25/18 01:30 Blood - Peripheral Anaerobic Blood Culture - Preliminary No growth in 2 days 07/25/18 01:36 Blood - Peripheral Aerobic Blood Culture - Preliminary Staphylococcus epidermidis 07/25/18 01:36 Blood - Peripheral Anaerobic Blood Culture - Preliminary Staphylococcus coag negative 07/25/18 01:36 Clean Catch Urine Urine Culture - Final Klebsiella pneumoniae 07/26/18 16:00 Stool Stool Occult Blood (TIERRA) - Final Hemoccult negative Assessment and Plan - Assessment (1) Elevated troponin Code(s): R74.8 - Abnormal levels of other serum enzymes Status: Acute (2) Gastroenteritis Code(s): K52.9 - Noninfective gastroenteritis and colitis, unspecified Status : Acute (3) Rhabdomyolysis Code(s): M62.82 - Rhabdomyolysis Status: Acute - Plan 87 Y/O female who denies any medical history, does not take any medications or follow with doctors admitted with: Rhabdomyolysis secondary to dehydration and prolonged immobilization: -Resolved with IV hydration Elevated troponin: - No cardiovascular complaints. DW Cardiology. Likely due to severe dehydration and rhabdo. -Heparin drip discontinued. - Troponin downtrending. Patient does not want further ischemic evaluation which is appropriate given that she is stable without cardiovascular complaints. - Check lipids Gastroenteritis with reports of dark emesis and dark stool. - Agree with Cardiology. GI consulted but she does not want further invasive workup such as EGD. CT of the abdomen and pelvis per GI. - H&H is normal - Protonix KYLEE: Likely secondary to dehydration -Resolved with IV fluid. Hypernatremia: - Change IV fluid to D5W. Follow-up labs in a.m. Elevated LFT's - Likely secondary to shocked liver and severe dehydration. No history of liver disease - Improving Follow up LFT's in AM. Physical deconditioning: - PT to eval. Patient lives at home by herself. Discharge Planning: Will likely need SNF versus home with home health.
[2018-07-27] MEDS ORDERED: Dextrose 5% in Water Inj 1,000 ML IV.CONT SCH (17:00)
[2018-07-27] MEDS ORDERED: Diatrizoate Meglum/Diatrizoate Sod Liq 9 ML UDC PO ONE (17:15)
--- NOTE | 2018-07-27 21:11 | CT ---
EXAM DATE: 07/27/2018 8:04 PM EDT AGE/SEX: 87 years / Female INDICATIONS: Evaluate for GI bleeding. CLINICAL DATA: This is the patient's initial encounter. Patient reports that signs and symptoms have been present for 1 day and indicates a pain score of 0/10. MEDICAL/SURGICAL HISTORY: . Gastroenteritis. None. RADIATION DOSE: 15.39 CTDI (mGy) COMPARISON: No prior exams available for comparison. TECHNIQUE: Multiple contiguous axial images were obtained through the abdomen. Images were obtained using multiple row detector helical technique. Using automated exposure control and adjustment of the mA and/or kV according to patient size, radiation dose was kept as low as reasonably achievable to o btain optimal diagnostic quality images. DICOM format image data is available electronically for rev iew and comparison. FINDINGS: Moderate bibasilar parenchymal changes are present with trace pleural effusion. Aortic valve calcifications with mild compensated cardiomegaly Liver and gallbladder unremarkable Pancreas and spleen appear normal Adrenal glands unremarkable Right and left kidneys appear normal. Moderate vascular calcifications are noted. There are no inflammatory changes in the mesentery Scattered diverticula lie in the sigmoid colon without diverticulitis. Prominent uterus No free fluid Degenerative changes in the lower lumbar spine and both hips. CONCLUSION: 1. Severely Limited exam without intravenous contrast in this patient that I have been asked to evalu ate for GI bleeding 2. Multiple diverticuli in the sigmoid colon 3. Moderate atherosclerotic vascular calcifications 4. There is no free air or obstruction 5. Prominent uterus. 6. Moderate bibasilar parenchymal changes with trace ascites. Electronically signed by: Rich Kincaid MD 07/27/2018 9:10 PM EDT
[2018-07-28] MEDS ORDERED: Dextrose 5% in Water Inj 1,000 ML IV.CONT SCH (01:45)
[2018-07-28] MEDS: Heparin - SQ 10,000 UNITS/ML Vial SQ SCH ×2 (05:18→15:19)
[2018-07-28 07:17] LABS: Hemoglobin 11.5 gm/dL (11.6-15.3); Mean Corpuscular HGB Conc 33.7 % (32.0-36.0); Mean Corpuscular Hemoglobin 32.3 pg (27.0-34.0); Mean Corpuscular Volume 95.6 fL (80.0-100.0); Mean Platelet Volume 11.4 fL (7.0-11.0); Platelet Count 89 th/mm3 (150-450); Red Blood Count 3.55 mil/mm3 (4.00-5.30); Red Cell Distribution Width 13.6 % (11.6-17.2); White Blood Count 10.3 th/mm3 (4.0-11.0)
[2018-07-28 07:45] LABS: Anion Gap 6 meq/L (5-15); Blood Urea Nitrogen 14 mg/dL (7-18); Carbon Dioxide 29.4 meq/L (21.0-32.0); Chloride 114 meq/L (98-107); Cholesterol 119 mg/dL (120-200); Glomerular Filtration Rate Greater Than 89 mL/min (>89); Glucose,Random 105 mg/dL (74-106); Potassium 3.7 meq/L (3.5-5.1); Sodium 149 meq/L (136-145); Triglycerides 75 mg/dL (42-150)
[2018-07-28 08:02] LABS: Calcium 7.8 mg/dL (8.5-10.1); Chol/HDL Ratio 4.54 Ratio; HDL Cholesterol 26.2 mg/dL (40.0-60.0); LDL Cholesterol,Calculated 78 mg/dL (0-99)
[2018-07-28] MEDS: Senna/Docusate Sodium 8.6/50 MG Tablet PO SCH (08:36)
--- NOTE | 2018-07-28 11:56 | P.DS ---
Date of admission: 07/25/18 03:50 Primary care physician: UNKNOWN Brief History from admission: 87 Y/O female who presented to the emergency room for nausea and vomiting. She reported black emesis to the ED physician but reports to me that she vomited a sandwich made with roast beef. There is also reports of 2-3 black stools. Over the past two days prior to presentation, she has been unable to keep anything down, even liquids. She went to the bath tub to clean herself but could not get out. Neighbors found her in the tub. The patient is still quiet somnolent and is not providing much history. Workup in the emergency room revealed an elevated troponin and rhabdomyolysis. She currently denies any cardiovascular complaints. Nausea and vomiting resolved. Patient update on day of discharge: Patient reports she is feeling okay today. Eating better. Eager to go to rehab. DS: Diagnosis - Discharge Diagnosis (1) Elevated troponin Status: Acute (2) Gastroenteritis Status: Acute (3) Rhabdomyolysis Status: Acute (4) Physical deconditioning Status: Acute DS: Medications - Discharge Medications Prescriptions: cefuroxime axetil 500 mg PO Q12HR #10 tab pantoprazole 40 mg PO DAILY #30 tab DS: Summary Hospital Course: 87 Y/O female who denies any medical history, does not take any medications or follow with doctors. The patient was admitted and treated for the following: Rhabdomyolysis secondary to dehydration and prolonged immobilization: -Resolved with IV hydration Elevated troponin: - No cardiovascular complaints. DW Cardiology. Likely due to severe dehydration and rhabdo. -Heparin drip discontinued. - Troponin downtrending. Patient does not want further ischemic evaluation which is appropriate given that she is stable without cardiovascular complaints. -Lipids acceptable. Gastroenteritis with reports of dark emesis and dark stool. - Agree with Cardiology. GI consulted but she does not want further invasive workup such as EGD. CT of the abdomen and pelvis per GI unremarkable. - H&H did trend down but she had aggressive IV fluid resuscitation. There were no evidence of GI bleeding. Hemoccult negative. -Patient treated with Protonix. KYLEE: Likely secondary to dehydration -Resolved with IV fluid. Hypernatremia: -Improved with IV fluid. Elevated LFT's - Likely secondary to shocked liver and severe dehydration. No history of liver disease -LFTs improved. Physical deconditioning: -Patient requires rehabilitation. She was [facility] to [facility] facility to continue rehab efforts. - Time Spent with Patient Total time spent providing and/or coordinating discharge services: Greater than 30 minutes - Quality: VTE Deep Vein Thrombosis/Pulmonary Embolism Present on Admission: No Exam Vital signs: Vital Signs 07/27/18 12:00 07/27/18 13:00 07/27/18 14:00 Temperature 98.2 F Pulse Rate 74 82 80 Respiratory Rate 18 Blood Pressure 150/79 H Pulse Oximetry 98 07/27/18 15:00 07/27/18 16:00 07/27/18 17:00 Temperature 98.2 F Pulse Rate 78 68 76 Respiratory Rate 18 Blood Pressure 136/62 Pulse Oximetry 99 07/27/18 18:00 07/27/18 20:00 07/27/18 21:00 Temperature 98 F Pulse Rate 80 84 76 Respiratory Rate 20 Blood Pressure 140/83 Pulse Oximetry 99 07/27/18 21:47 07/27/18 22:00 07/27/18 23:00 Temperature Pulse Rate 79 74 Respiratory Rate Blood Pressure Pulse Oximetry 99 07/28/18 00:00 07/28/18 01:00 07/28/18 02:00 Temperature 97.8 F Pulse Rate 76 80 84 Respiratory Rate 18 Blood Pressure 136/69 Pulse Oximetry 97 07/28/18 03:00 07/28/18 04:00 07/28/18 05:00 Temperature 98.2 F Pulse Rate 79 77 74 Respiratory Rate 18 Blood Pressure 141/79 H Pulse Oximetry 98 07/28/18 06:00 07/28/18 08:00 Temperature 98.2 F Pulse Rate 79 81 Respiratory Rate 16 Blood Pressure 161/80 H Pulse Oximetry 97 Intake & Output 07/27/18 07/28/18 07/28/18 18:59 06:59 18:59 Intake Total 920 / 920 240 / 240 Output Total 800 / 800 900 / 900 Balance 120 / 120 -660 / -660 Weight 80.6 kg Intake: Oral 920 / 920 240 / 240 Output: Urine 800 / 800 900 / 900 Other: Date of Last Bowel Movement 07/26/18 # Bowel Movements 0 Narrative: GENERAL: Elderly and frail female CARDIOVASCULAR: Normal rate and regular rhythm. RESPIRATORY: No accessory muscle use. Clear to auscultation. Breath sounds equal bilaterally. GASTROINTESTINAL: Abdomen soft, non-tender, nondistended. MUSCULOSKELETAL: Extremities without clubbing, cyanosis, or edema. NEUROLOGICAL: Awake and alert. Results Procedures completed during hospitalization: None Labs on day of discharge: Labs from last 24 hours 07/28/18 07/28/18 06:18 06:18 WBC 10.3 RBC 3.55 L Hgb 11.5 L Hct 34.0 L MCV 95.6 MCH 32.3 MCHC 33.7 RDW 13.6 Plt Count 89 L MPV 11.4 H Sodium 149 H Potassium 3.7 Chloride 114 H Carbon Dioxide 29.4 Anion Gap 6 BUN 14 Creatinine 0.52 Estimated GFR Greater than 89 Random Glucose 105 Calcium 7.8 L Triglycerides 75 Cholesterol 119 L LDL Cholesterol, Calc 78 HDL Cholesterol 26.2 L Cholesterol/HDL Ratio 4.54 Preliminary micro results at discharge 07/25/18 01:30 Aerobic Blood Culture - Preliminary Blood - Peripheral No growth in 3 days Anaerobic Blood Culture - Preliminary No growth in 3 days - Impressions ITS Impressions Chest X-Ray 07/24/18 23:33 CONCLUSION: Minimal basilar atelectasis or scarring. Tortuous aorta. Abdomen/Pelvis CT 07/27/18 00:00 CONCLUSION: 1. Severely Limited exam without intravenous contrast in this patient that I have been asked to evaluate for GI bleeding 2. Multiple diverticuli in the sigmoid colon 3. Moderate atherosclerotic vascular calcifications 4. There is no free air or obstruction 5. Prominent uterus. 6. Moderate bibasilar parenchymal changes with trace ascites. Discharge Plan - Discharge Disposition Patient Disposition: Discharge to SNF - Discharge Condition Condition: Good - Discharge Order Discharge Orders: Discharge Order (Routine); Ordered 07/28/18 Ordered By: Maria Elena Browne - Physicians Team Primary Care Provider: UNKNOWN, Attending Provider: Maria Elena Browne Other Providers: Milo Flowers DO ; Dorothea Ramirez MD ; [facility]
[2018-07-28 13:12] VITALS: RESP 18
--- NOTE | 2018-07-28 13:28 | P.PNCA ---
Subjective Interval history: No events overnight Medications and Allergies Active Medications: Active Medications Acetaminophen (Tylenol) 650 mg PO Q4H PRN PRN Reason: Temp > 100.4 Al Hydroxide/Mg Hydroxide (Milk Of Magnesia Liq) 30 ml PO Q12H PRN PRN Reason: Mild Constipation Bisacodyl (Dulcolax Supp) 10 mg RECTAL DAILY PRN PRN Reason: SEVERE CONSITIPATION Cefuroxime Axetil (Ceftin) 500 mg PO Q12HR [facility] Last Admin: 07/28/18 08:36 Dose: 500 mg Clonidine HCl (Catapres) 0.1 mg PO Q6H PRN PRN Reason: SEE LABEL COMMENTS Heparin Sodium (Porcine) (Heparin Inj) 5,000 units SQ Q8HR [facility] Last Admin: 07/28/18 05:18 Dose: 5,000 units Dextrose (D5w Inj) 1,000 mls @ 100 mls/hr IV.CONT .Q10H [facility] Last Infusion: 07/28/18 12:50 Dose: Infused Lactulose (Lactulose Liq) 30 ml PO DAILY PRN PRN Reason: SEVERE CONSITIPATION Miscellaneous Information ([facility] [place] [place] [facility] Ordered Lab Info) 0 each OTHER ONCE ONE Stop: 07/29/18 17:46 Ondansetron HCl (Zofran Inj) 4 mg IV.PUSH Q6H PRN PRN Reason: NAUSEA OR VOMITING Pantoprazole Sodium (Protonix) 40 mg PO DAILY [facility] Last Admin: 07/28/18 08:37 Dose: Not Given Senna/Docusate Sodium (Gail-Colace) 1 tab PO BID [facility] Last Admin: 07/28/18 08:36 Dose: Not Given Sennosides (Senokot) 17.2 mg PO Q12H PRN PRN Reason: Moderate Constipation Sodium Chloride (Ns Flush) 2 ml IV.FLUSH PRN PRN PRN Reason: FLUSH AFTER USING IV ACCESS Allergies Allergy/AdvReac Type Severity Reaction Status Date / Time No Known Allergies Allergy Verified 07/24/18 21:20 Home Medications Medication Instructions Recorded Confirmed Type Unable to Obtain Home Meds 07/24/18 07/24/18 History Physical Exam Vital signs: Vital Signs 07/27/18 14:00 07/27/18 15:00 07/27/18 16:00 Temperature 98.2 F Pulse Rate 80 78 68 Respiratory Rate 18 Blood Pressure 136/62 Pulse Oximetry 99 07/27/18 17:00 07/27/18 18:00 07/27/18 20:00 Temperature 98 F Pulse Rate 76 80 84 Respiratory Rate 20 Blood Pressure 140/83 Pulse Oximetry 99 07/27/18 21:00 07/27/18 21:47 07/27/18 22:00 Temperature Pulse Rate 76 79 Respiratory Rate Blood Pressure Pulse Oximetry 99 07/27/18 23:00 07/28/18 00:00 07/28/18 01:00 Temperature 97.8 F Pulse Rate 74 76 80 Respiratory Rate 18 Blood Pressure 136/69 Pulse Oximetry 97 07/28/18 02:00 07/28/18 03:00 07/28/18 04:00 Temperature 98.2 F Pulse Rate 84 79 77 Respiratory Rate 18 Blood Pressure 141/79 H Pulse Oximetry 98 07/28/18 05:00 07/28/18 06:00 07/28/18 07:00 Temperature Pulse Rate 74 79 81 Respiratory Rate Blood Pressure Pulse Oximetry 07/28/18 08:00 07/28/18 09:00 07/28/18 10:00 Temperature 98.2 F Pulse Rate 78 82 82 Respiratory Rate 16 Blood Pressure 161/80 H Pulse Oximetry 97 07/28/18 11:00 07/28/18 12:00 Temperature 98.0 F Pulse Rate 81 84 Respiratory Rate 18 Blood Pressure 147/69 H Pulse Oximetry 95 Intake & Output 07/27/18 07/28/18 07/28/18 18:59 06:59 18:59 Intake Total 920 / 920 240 / 240 1000 / 1000 Output Total 800 / 800 900 / 900 Balance 120 / 120 -660 / -660 1000 / 1000 Weight 80.6 kg Intake: IV 1000 / 1000 D5W Inj 1,000 ML @ 100 mls/hr 1000 / 1000 IV.CONT .Q10H [facility] Rx#:[id number] Oral 920 / 920 240 / 240 Output: Urine 800 / 800 900 / 900 Other: Date of Last Bowel Movement 07/26/18 # Bowel Movements 0 Narrative: GENERAL: Elderly and frail female CARDIOVASCULAR: Normal rate and regular rhythm. RESPIRATORY: No accessory muscle use. Clear to auscultation. Breath sounds equal bilaterally. GASTROINTESTINAL: Abdomen soft, non-tender, nondistended. MUSCULOSKELETAL: Extremities without clubbing, cyanosis, or edema. NEUROLOGICAL: Awake and alert. - Urinary Catheter Management Female External Cath placed during this visit: no Results 07/28/18 06:18 07/28/18 06:18 Cardiac Enzymes 07/27/18 Range/Units 06:48 AST 76 H (15-37) U/L Lipids 07/28/18 Range/Units 06:18 Triglycerides 75 (42-150) mg/dL Cholesterol 119 L (120-200) mg/dL HDL Cholesterol 26.2 L (40.0-60.0) mg/dL Cholesterol/HDL Ratio 4.54 Ratio CBC 07/27/18 07/28/18 Range/Units 06:48 06:18 WBC 9.5 10.3 (4.0-11.0) th/mm3 RBC 3.81 L 3.55 L (4.00-5.30) mil/mm3 Hgb 12.2 11.5 L (11.6-15.3) gm/dL Hct 36.2 34.0 L (35.0-46.0) % Plt Count 88 L 89 L (150-450) th/mm3 Comprehensive Metabolic Panel 07/27/18 07/28/18 Range/Units 06:48 06:18 Sodium 150 H 149 H (136-145) meq/L Potassium 3.8 3.7 (3.5-5.1) meq/L Chloride 116 H 114 H (98-107) meq/L Carbon Dioxide 27.1 29.4 (21.0-32.0) meq/L BUN 22 H 14 (7-18) mg/dL Creatinine 0.61 0.52 (0.50-1.00) mg/dL Calcium 8.1 L 7.8 L (8.5-10.1) mg/dL Direct Bilirubin 0.2 (0.0-0.2) mg/dL Indirect Bilirubin 0.4 (0.0-0.8) mg/dL AST 76 H (15-37) U/L ALT 55 H (10-53) U/L Alkaline Phosphatase 48 (45-117) U/L Total Protein 5.2 L (6.4-8.2) g/dL Albumin 2.3 L (3.4-5.0) g/dL Intake and Output 10/14/18 10/15/18 10/15/18 22:59 06:59 14:59 Intake Total 920 / 920 240 / 240 1000 / 1000 Output Total 800 / 800 900 / 900 Balance 120 / 120 -660 / -660 1000 / 1000 Intake: IV 1000 / 1000 D5W Inj 1,000 ML @ 100 mls/hr 1000 / 1000 IV.CONT .Q10H [facility] Rx#:[id number] Oral 920 / 920 240 / 240 Output: Urine 800 / 800 900 / 900 Other: Date of Last Bowel Movement 07/26/18 # Bowel Movements 0 Weight 80.6 kg - Imaging and Cardiology Imaging: Impressions Abdomen/Pelvis CT 07/27/18 00:00 CONCLUSION: 1. Severely Limited exam without intravenous contrast in this patient that I have been asked to evaluate for GI bleeding 2. Multiple diverticuli in the sigmoid colon 3. Moderate atherosclerotic vascular calcifications 4. There is no free air or obstruction 5. Prominent uterus. 6. Moderate bibasilar parenchymal changes with trace ascites. Assessment and Plan - Assessment (1) Elevated troponin Code(s): R74.8 - Abnormal levels of other serum enzymes Status: Acute (2) Gastroenteritis Code(s): K52.9 - Noninfective gastroenteritis and colitis, unspecified Status : Acute (3) Rhabdomyolysis Code(s): M62.82 - Rhabdomyolysis Status: Acute - Plan 1) Gastroenteritis from rancid meat GI evaluation Hold off on EGD per patient's wishes 2) Question of hematemesis/melanotic stool 3) Elevated troponin Most likely Type 2 due to Rhabdomyolysis and dehydration Discussed ischemic evaluation, but she would not like to go through that at her age which is understandable 4) Rhabdomyolysis Due to laying in her bathtub for a few days Continue fluids 5) Dehydration 6) EF 55-60%, mild MS, moderate 7) Pre-operative CV evaluation She's at an elevated risk due to elevated troponins, although believed to be Type [address] in [address] to decrease her risk, she's hemodynamically/electrically stable without CP/SOB So if information obtained from EGD felt to be necessary then may proceed as an elevated risk GI discussed with patient, she would like to hold off on EGD
--- NOTE | 2018-07-28 14:04 | P.PNGI ---
Subjective Interval history: Resting in the bed, poor historian, awake conversational no obvious bleeding no abdominal pain no nausea no vomiting <Fiona Mcwilliams M - Last Filed: 07/28/18 13:59> Physical Exam Vital signs: Vital Signs 07/27/18 14:00 07/27/18 15:00 07/27/18 16:00 Temperature 98.2 F Pulse Rate 80 78 68 Respiratory Rate 18 Blood Pressure 136/62 Pulse Oximetry 99 07/27/18 17:00 07/27/18 18:00 07/27/18 20:00 Temperature 98 F Pulse Rate 76 80 84 Respiratory Rate 20 Blood Pressure 140/83 Pulse Oximetry 99 07/27/18 21:00 07/27/18 21:47 07/27/18 22:00 Temperature Pulse Rate 76 79 Respiratory Rate Blood Pressure Pulse Oximetry 99 07/27/18 23:00 07/28/18 00:00 07/28/18 01:00 Temperature 97.8 F Pulse Rate 74 76 80 Respiratory Rate 18 Blood Pressure 136/69 Pulse Oximetry 97 07/28/18 02:00 07/28/18 03:00 07/28/18 04:00 Temperature 98.2 F Pulse Rate 84 79 77 Respiratory Rate 18 Blood Pressure 141/79 H Pulse Oximetry 98 07/28/18 05:00 07/28/18 06:00 07/28/18 07:00 Temperature Pulse Rate 74 79 81 Respiratory Rate Blood Pressure Pulse Oximetry 07/28/18 08:00 07/28/18 09:00 07/28/18 10:00 Temperature 98.2 F Pulse Rate 78 82 82 Respiratory Rate 16 Blood Pressure 161/80 H Pulse Oximetry 97 07/28/18 11:00 07/28/18 12:00 Temperature 98.0 F Pulse Rate 81 84 Respiratory Rate 18 Blood Pressure 147/69 H Pulse Oximetry 95 Intake & Output 07/27/18 07/28/18 07/28/18 18:59 06:59 18:59 Intake Total 920 / 920 240 / 240 1000 / 1000 Output Total 800 / 800 900 / 900 Balance 120 / 120 -660 / -660 1000 / 1000 Weight 80.6 kg Intake: IV 1000 / 1000 D5W Inj 1,000 ML @ 100 mls/hr 1000 / 1000 IV.CONT .Q10H [facility] Rx#:[id number] Oral 920 / 920 240 / 240 Output: Urine 800 / 800 900 / 900 Other: Date of Last Bowel Movement 07/26/18 # Bowel Movements 0 - Constitutional no acute distress, obese, disheveled, cooperative - Routine HEENT Exam Head: Present: normocephalic ENT: Present: mucous membranes moist (Pale) - Routine Neck Exam Present: supple - Routine Respiratory Exam Present: accessory muscle use (Low volumes but no obvious shortness of breath at rest) - Routine Cardiovascular Exam Present: S1, S2, murmur - Routine Abdominal Exam Present: soft (Obese, round, soft bowel sounds,) - Routine Skin Exam Present: intact, pallor - Urinary Catheter Management Female External Cath placed during this visit: no <Fiona Mcwilliams - Last Filed: 07/28/18 13:59> Vital signs: Vital Signs 07/27/18 17:00 07/27/18 18:00 07/27/18 20:00 Temperature 98 F Pulse Rate 76 80 84 Respiratory Rate 20 Blood Pressure 140/83 Pulse Oximetry 99 07/27/18 21:00 07/27/18 21:47 07/27/18 22:00 Temperature Pulse Rate 76 79 Respiratory Rate Blood Pressure Pulse Oximetry 99 07/27/18 23:00 07/28/18 00:00 07/28/18 01:00 Temperature 97.8 F Pulse Rate 74 76 80 Respiratory Rate 18 Blood Pressure 136/69 Pulse Oximetry 97 07/28/18 02:00 07/28/18 03:00 07/28/18 04:00 Temperature 98.2 F Pulse Rate 84 79 77 Respiratory Rate 18 Blood Pressure 141/79 H Pulse Oximetry 98 07/28/18 05:00 07/28/18 06:00 07/28/18 07:00 Temperature Pulse Rate 74 79 81 Respiratory Rate Blood Pressure Pulse Oximetry 07/28/18 08:00 07/28/18 09:00 07/28/18 10:00 Temperature 98.2 F Pulse Rate 78 82 82 Respiratory Rate 16 Blood Pressure 161/80 H Pulse Oximetry 97 07/28/18 11:00 07/28/18 12:00 07/28/18 15:01 Temperature 98.0 F Pulse Rate 81 84 Respiratory Rate 18 Blood Pressure 147/69 H Pulse Oximetry 95 96 Intake & Output 07/27/18 07/28/18 07/28/18 18:59 06:59 18:59 Intake Total 920 / 920 240 / 240 1000 / 1000 Output Total 800 / 800 900 / 900 Balance 120 / 120 -660 / -660 1000 / 1000 Weight 80.6 kg Intake: IV 1000 / 1000 D5W Inj 1,000 ML @ 100 mls/hr 1000 / 1000 IV.CONT .Q10H [facility] Rx#:[id number] Oral 920 / 920 240 / 240 Output: Urine 800 / 800 900 / 900 Other: Date of Last Bowel Movement 07/26/18 # Bowel Movements 0 - Urinary Catheter Management Female External Cath placed during this visit: no <Dorothea Ramirez - Last Filed: 07/28/18 16:15> Results - Labs CBC & Chem 7: 07/28/18 06:18 07/28/18 06:18 Laboratory Results - last 24 hr 07/28/18 07/28/18 06:18 06:18 WBC 10.3 RBC 3.55 L Hgb 11.5 L Hct 34.0 L MCV 95.6 MCH 32.3 MCHC 33.7 RDW 13.6 Plt Count 89 L MPV 11.4 H Sodium 149 H Potassium 3.7 Chloride 114 H Carbon Dioxide 29.4 Anion Gap 6 BUN 14 Creatinine 0.52 Estimated GFR Greater than 89 Random Glucose 105 Calcium 7.8 L Triglycerides 75 Cholesterol 119 L LDL Cholesterol, Calc 78 HDL Cholesterol 26.2 L Cholesterol/HDL Ratio 4.54 Microbiology 07/25/18 01:30 Blood - Peripheral Aerobic Blood Culture - Preliminary No growth in 3 days 07/25/18 01:30 Blood - Peripheral Anaerobic Blood Culture - Preliminary No growth in 3 days 07/25/18 01:36 Blood - Peripheral Aerobic Blood Culture - Final Staphylococcus epidermidis 07/25/18 01:36 Blood - Peripheral Anaerobic Blood Culture - Final Staphylococcus coag negative - Imaging Impressions Abdomen/Pelvis CT 07/27/18 00:00 CONCLUSION: 1. Severely Limited exam without intravenous contrast in this patient that I have been asked to evaluate for GI bleeding 2. Multiple diverticuli in the sigmoid colon 3. Moderate atherosclerotic vascular calcifications 4. There is no free air or obstruction 5. Prominent uterus. 6. Moderate bibasilar parenchymal changes with trace ascites. <Fiona Mcwilliams - Last Filed: 07/28/18 13:59> - Labs CBC & Chem 7: 07/28/18 06:18 07/28/18 06:18 Laboratory Results - last 24 hr 07/28/18 07/28/18 06:18 06:18 WBC 10.3 RBC 3.55 L Hgb 11.5 L Hct 34.0 L MCV 95.6 MCH 32.3 MCHC 33.7 RDW 13.6 Plt Count 89 L MPV 11.4 H Sodium 149 H Potassium 3.7 Chloride 114 H Carbon Dioxide 29.4 Anion Gap 6 BUN 14 Creatinine 0.52 Estimated GFR Greater than 89 Random Glucose 105 Calcium 7.8 L Triglycerides 75 Cholesterol 119 L LDL Cholesterol, Calc 78 HDL Cholesterol 26.2 L Cholesterol/HDL Ratio 4.54 Microbiology 07/25/18 01:30 Blood - Peripheral Aerobic Blood Culture - Preliminary No growth in 3 days 07/25/18 01:30 Blood - Peripheral Anaerobic Blood Culture - Preliminary No growth in 3 days 07/25/18 01:36 Blood - Peripheral Aerobic Blood Culture - Final Staphylococcus epidermidis 07/25/18 01:36 Blood - Peripheral Anaerobic Blood Culture - Final Staphylococcus coag negative - Imaging Impressions Abdomen/Pelvis CT 07/27/18 00:00 CONCLUSION: 1. Severely Limited exam without intravenous contrast in this patient that I have been asked to evaluate for GI bleeding 2. Multiple diverticuli in the sigmoid colon 3. Moderate atherosclerotic vascular calcifications 4. There is no free air or obstruction 5. Prominent uterus. 6. Moderate bibasilar parenchymal changes with trace ascites. <Dorothea Ramirez - Last Filed: 07/28/18 16:15> Assessment and Plan - Plan - Melena, coffee ground emesis- hgb is stable, no signs of active bleed. No more bleeding. Tolerating diet okay Symptoms started following eating sandwich made with roast beef that possibly was rancid. Shortly after, pt noticed coffee ground emesis and black stools. She went to the bath tub to clean herself but could not get out. Was there from Saturday until Saturday when she was found by neighbor. Workup revealed an elevated troponin and rhabdomyolysis. Patient denies previous hx of this, not on blood thinner. Denies abd pain or hematochezia. Symptoms have resolved. There is a drop in hgb from 15 - 12. - Elevated LFTs- Improving. likely shocked liver secondary to above, will monitor, pt denies alcohol intake - rhabdomyolysis. - elevated troponin- Cardiology on the case, work up pending, No plans for invasive procedures - NEAL- Improving, Secondary to above 07/28/2018, patient's resting in the bed unsure if she has had a bowel movement or not, poor historian. No obvious nausea vomiting or abdominal pain CT scan showed trace of ascites and positive diverticulosis. Mild decrease in alkaline phosphatase 613. Current hemoglobin 11.5, normalized WBC count 10.3, Bilirubin normalized on 07/27/2018 and LFTs continue to decline, unspecified to medications versus shock liver, rhabdomyolysis. . We will be glad to see and follow patient on an outpatient basis but no plans for procedures at this time. Patient unaware of any further dark stools Plan: Diet per attending as tolerated PPI Bowel regimen as needed, spoke with patient to consider MiraLAX if needed Monitor labs Supportive care Follow on an outpatient basis if needed Patient was seen per myself and Dr. Ramirez, note was written on her behalf <Fiona Mcwilliams - Last Filed: 07/28/18 13:59> - Attending Attestation seen, examined agree with above fu gi in 2 weeks egd if agrees gi will sign off <Dorothea Ramirez - Last Filed: 07/28/18 16:15>
[2018-07-28 16:43] VITALS: BP 149/77; TEMP 98.4; O2SAT 98
[2018-07-28 19:14] VITALS: PULSE 90
[2018-07-29] MEDS ORDERED: Pharmacy Ordered Lab Info OTHER ONE (17:45)
== END 2018-07-28 20:17 ==
LOC: PHED 20:17 → PHEDA 07-25 03:50 → N03 07-25 08:31 → HCIS 07-26 01:47
PROVIDERS: ADMIT Family Medicine; ATTEND Family Medicine